=== PATIENT | female | born 1950 | race Two or more races ===

== ENCOUNTER 2016-06-09 10:14 | Day surgery (SDC) | payer MEDICARE, MEDICAID ==
[2016-06-02 10:00] LABS: HEMATOCRIT 45.1 % (36.0-47.0); HGB HCT DIFFERENCE -0.1; MEAN CORPUSCULAR HEMOGLOBIN 30.5 pg (27.0-33.4); MEAN CORPUSCULAR HGB CONC 33.3 g/dL (32.0-36.0); MEAN CORPUSCULAR VOLUME 92 fl (80-97); RED BLOOD COUNT 4.92 10^6/uL (3.72-5.28); RED CELL DISTRIBUTION WIDTH 13.2 % (11.5-14.0); WHITE BLOOD COUNT 9.3 10^3/uL (4.0-10.5)
[~2016-06-09 10:14] MED LIST: CEFAZOLIN 1 GM/D5W RTU 1 GM/50 ML RTUPB IV PRN; LACTATED RINGERS 1000 ML IV PRN
[2016-06-09] MEDS ORDERED: LIDOCAINE 1%/EPINEPHRINE INJ 20 ML VIAL ONE ×2 (10:45→13:41)
[2016-06-09] MEDS ORDERED: MICROFIBRILLAR COLLAGEN 1 GM PACK ONE (10:45)
[2016-06-09] MEDS ORDERED: FAMOTIDINE INJ/PF 20 MG/2 ML SDV IV ONE (12:05)
[2016-06-09] MEDS ORDERED: FENTANYL CITRATE INJ/PF 100 MCG/2 ML AMPUL ONE (12:42)
[2016-06-09] MEDS ORDERED: ACETAMINOPHEN 100 ML IV ONE (12:43)
[2016-06-09] MEDS ORDERED: PROPOFOL INJ 200 MG/20 ML VIAL IV ONE (12:43)
[2016-06-09] MEDS ORDERED: MIDAZOLAM 2 MG/2 ML INJ ONE (12:43)
[2016-06-09] MEDS ORDERED: METOCLOPRAMIDE HCL INJ/PF 10 MG/2 ML SDV ONE (13:10)
[2016-06-09] MEDS ORDERED: DEXAMETHASONE SOD PHOSPHATE INJ 4 MG/1 ML VIAL ONE (13:10)
[2016-06-09] MEDS ORDERED: LIDOCAINE 2% INJ-PF (20 MG/ML) 10 ML AMPUL ONE (13:10)
[2016-06-09] MEDS ORDERED: ONDANSETRON HCL INJ/PF 4 MG/2 ML SDV ONE (13:10)
[2016-06-09] MEDS ORDERED: MORPHINE SULFATE 10 MG/ML INJ IV PRN (13:49)
[2016-06-09] MEDS ORDERED: MEPERIDINE HCL/PF INJ 25 MG/1 ML DISP.SYRIN IV PRN (13:49)
[2016-06-09] MEDS ORDERED: PROMETHAZINE HCL INJ 25 MG/1 ML VIAL IV PRN ×2 (13:49)
[2016-06-09] MEDS ORDERED: DIPHENHYDRAMINE HCL 50 MG/ML VIAL IV PRN (13:49)
[2016-06-09] MEDS ORDERED: FENTANYL CITRATE INJ/PF 100 MCG/2 ML AMPUL IV PRN ×3 (13:49)
[2016-06-09] MEDS ORDERED: OXYCODONE-ACETAMINOPHEN 5-325 MG TABLET PO PRN ×2 (13:49)
--- NOTE | 2016-06-09 14:37 | Operative Report ---
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 Ultrasound directed open right breast excisional biopsy in 3 parts SURGEON: YANICK MARRUFO IMPORT/EXPORT SPECIALIST: IGOR HERNANDEZ ANESTHESIA: LMAC TISSUE REMOVED OR ALTERED: 3 right breast specimens COMPLICATIONS: None ESTIMATED BLOOD LOSS: scant INTRAOPERATIVE FINDINGS: See below PROCEDURE: The patient was seen in the preoperative holding area where the right breast was marked. Local examination confirmed palpable density 12 o'clock position right breast approximate 4 cm from the ipsilateral nipple. The patient taken the operating room where LMAC anesthesia was induced. Right arm abducted, right breast prepped and draped sterile fashion. Surgical plan and surgical time out conducted. Focused ultrasound of the right breast confirmed the hypoechoic density approximately 1 cm vertically oriented in the right breast at the center of the palpable density. The overlying skin was anesthetized with 1% lidocaine plain. A 5 cm curvilinear incision was made between the 11:30 and 1 o'clock position right breast approximate 4 cm from the nipple. Underlying mass of breast tissue was excised using electrocautery. The specimen was approximately 4 x 5 x 3 cm. It was labeled with a long suture in the patient's right lateral position, short suture in the superior anterior position. Suspected with ultrasound and felt that it did not contain the target mass. This specimen was labeled specimen A . We reinspected the breast cavity and there was the palpable lesion in the central to 2 o'clock position. Ultrasound confirmed retention of the mass in the patient's breast. Therefore a second incisional biopsy was performed of this density. The specimen was comparable in size to the first specimen, labeled accordingly long suture in the lateral position short suture anteriorly , with the palpable density on the posterior surface of this specimen. It was labeled specimen B and taken to pathology where it was reviewed with Dr. Jung Whatley. The posterior nodular area underwent frozen section and review by Dr. Beach was felt to represent a papillary lesion. He ordered to ensure negative margins, Dr. Beach requested a cavity excision to the deep to the specimen B. We therefore went back to the patient's breast and removed a 1 x 4 x 4 cm posterior cavity shave of the lumpectomy site. This was labeled specimen C, was oriented with long suture in the patient's lateral right position and the short suture in the superior position. Was sent for permanent analysis We felt the operation was complete. Hemostasis was excellent. Avitene was placed in the recesses of the wound and the wound closed with 3-0 Vicryl. Steri -Strips applied. Postoperative suture well to recovery in stable condition. The physician personal injury legal assistant, Ms. Hernandez, provided assistance during this case by: assisting, retracting tissue, instillation of local anesthesia and closure of skin incisions.
--- NOTE | 2016-06-09 14:49 | PDOC DISCHARGE SUMMARY ---
Discharge Summary (SDC) - Discharge Final Diagnosis: right breast mass Date of Surgery: 06/09/16 Discharge Date: 06/09/16 Condition: Stable Treatment or Instructions: [facility] [address], [place] [address] Care Instructions Following Your Lumpectomy Activities: Resume normal activities when you feel comfortable. It is best to remain as active as possible to speed your recovery. It is common to experience some fatigue after surgery and you may find that short naps are helpful. No driving while taking pain medication. Do not drive if you are taking pain medication other than Tylenol or Ibuprofen. No swimming, tub baths or soaking in a hot tub for 4 weeks. There are no dietary restrictions. Do not smoke as this impairs wound healing. Surgical Site care: Leave skin glue intact. You may shower when desired. Do not scrub the incision. Pat the area dry with a towel. You do not need to recover the wound although some patients find that they feel more comfortable using a light dressing for a few days to absorb any minimal drainage which may occur. Medications: Take Motrin (ibuprofen) 600 mg to 800 mg every 8 hours around the clock. You may taper this medication as you experience less pain. Take narcotic pain control such as Tylenol #3 or Percocet one to tablets every six hours as needed for breakthrough pain. Do not take over the counter Tylenol if you are taking either Tylenol #3 or Percocet. Again, you cannot drive while taking narcotic pain medication. Resume all of your normal prescription medications after your surgery unless instructed otherwise. You may experience constipation after surgery while taking pain medications. If using a narcotic on a regular basis, take a stool softener such as Colace twice a day. It is helpful to stay hydrated by drinking lots of fluids. Walking is also helpful and is good exercise after surgery. If you need extra help, use Milk of Magnesia according to the directions on the package. Follow-up: Call our office at to make a follow-up appointment in 10-14 days. Your doctor will call to discuss the pathology report with you as soon as it is available. Concerns: Some bruising may occur and will go away over time. If you have a fever of 101.5 or greater, chills, redness at the incision site, excessive drainage from your wound or severe pain not relieved by pain medication, call your doctor. A physician is available 24 hours a day 7 days a week in addition to regular office hours. If problems arise after normal office hours please call the hospital at . Please call if you have any questions or concerns. Prescriptions: Acetaminophen with Codeine [Tylenol #3 Tablet] 1 each PO Q6HP PRN #20 tablet PRN Reason: Discharge Diet: As Tolerated Discharge Activity: Activity As Tolerated Report the Following to Your Physician Immediately: Fever over 101 Degrees, Swelling, Warmth, Increased Soreness, Drainage-Foul Smelling
[2016-06-09 17:41] VITALS: BP 115/68
--- NOTE | 2016-06-10 15:38 | EKG REPORT ---
SEVERITY:- NORMAL ECG - SINUS RHYTHM : Confirmed by: Elif Pierson MD 10-Jun-2016 15:37:23
== END 2016-06-09 17:55 | disposition home or self-care (01) ==
LOC: OROUT 10:14
PROVIDERS: ATTEND Surgery
PROC: 0HBT0ZX Excision of Right Breast, Open Approach, Diagnostic (ICD-10-PCS; principal; 2016-06-09 13:30)
DX: D05.11 Intraductal carcinoma in situ of right breast (principal); I10 Essential (primary) hypertension; K21.9 Gastro-esophageal reflux disease without esophagitis; Z96.652 Presence of left artificial knee joint; Z79.899 Other long term (current) drug therapy
CPT/HCPCS: 36415 ×2; 84132; 85027; 88342 ×2; 88341 ×2; 88307 ×2; 93005; 93010; 19120; J2250; J0690; J1100; J3010; J3490 ×3; J2765; J2405; J2704; S0028; J0131; 400; 76098

== ENCOUNTER → 2016-07-05 | Outpatient (CLI) | payer MEDICARE, MEDICAID | LOC: RAD 12:38 | PROVIDERS: ATTEND Surgery | DX: C50.911 Malignant neoplasm of unspecified site of right female breast (principal) | CPT/HCPCS: 82565; A9576; C8906; 77059 ==

== ENCOUNTER → 2016-07-19 | Outpatient (CLI) | payer MEDICARE, MEDICAID ==
--- NOTE | 2016-07-30 09:24 | WOMENS IMAGING REPORT ---
EXAM DESCRIPTION: U/S BREAST UNILAT LIMITED COMPLETED DATE/TIME: 07/19/2016 10:12 am REASON FOR STUDY: N63 LUMP N63 UNSPECIFIED LUMP IN BREAST COMPARISON: MRI bilateral breasts 07/05/2016 Breast ultrasound 08/20/2015 Bilateral mammography 08/13/2015 TECHNIQUE: Real-time and static grayscale imaging performed of the right breast targeted to the area of MRI concern. Selected color Doppler images recorded. LIMITATIONS: None. FINDINGS: MASS: No mass identified. Normal glandular tissue. OTHER: Multiple small breast parenchymal cysts are identified in the right breast central retroareola r region. IMPRESSION: No suspicious findings detected by ultrasound. BIRAD: 4 Suspicious. Biopsy should be considered. The nodule of concern on MRI 07/05/2016, 7 mm enhancing mass lesions central right breast at approximat calvin the level of the nipple 2.8 cm from the nipple is not identified by ultrasound for second-look. No ultrasound-guided biopsy was performed today. Results were discussed with Dr. Hurtado, and MRI g uided biopsy is recommended. RECOMMENDATION: RECOMMENDED FOLLOW-UP: Follow-up as clinically indicated. COMMENT: The [employer] (ACR) has developed recommendations for screening MRI of the breasts in certain patient populations, to be used in conjunction with mammography. Breast MRI s urveillance may be appropriate for women with more than 20% lifetime risk of developing breast cancer as determined by genetic testing, significant family history of the disease, or history of mantle r adiation for Hodgkins Disease. ACR Practice Guidelines 2008. TECHNICAL DOCUMENTATION: JOB ID: [id number] [employer]- All Rights Reserved
== END ==
LOC: WI 09:21
PROVIDERS: ATTEND Surgery
DX: N60.01 Solitary cyst of right breast (principal)
CPT/HCPCS: 76642

== ENCOUNTER → 2016-09-28 | Outpatient (CLI) | payer MEDICARE, MEDICAID ==
[2016-09-28 11:44] LABS: ABSOLUTE EOSINOPHILS # (AUTO) 0.2 10^3/uL (0.0-0.6); ABSOLUTE LYMPHOCYTES (AUTO) 2.7 10^3/uL (0.5-4.7); ABSOLUTE MONOCYTES (AUTO) 0.7 10^3/uL (0.1-1.4); ABSOLUTE NEUT (AUTO) 4.5 10^3/uL (1.7-8.2); BASOPHILS % (AUTO) 0.5 % (0-2); EOSINOPHILS % (AUTO) 2.1 % (0-6); HEMATOCRIT 42.4 % (36.0-47.0); HEMOGLOBIN 14.4 g/dL (12.0-15.5); HGB HCT DIFFERENCE 0.8; LYMPHOCYTES % (AUTO) 33.5 % (13-45); MEAN CORPUSCULAR HEMOGLOBIN 31.3 pg (27.0-33.4); MEAN CORPUSCULAR HGB CONC 33.9 g/dL (32.0-36.0); MEAN CORPUSCULAR VOLUME 92 fl (80-97); MONOCYTES % (AUTO) 8.5 % (3-13); RED BLOOD COUNT 4.59 10^6/uL (3.72-5.28); RED CELL DISTRIBUTION WIDTH 12.4 % (11.5-14.0); SEGMENTED NEUTROPHILS % (AUTO) 55.4 % (42-78); WHITE BLOOD COUNT 8.2 10^3/uL (4.0-10.5)
[2016-09-28 12:08] LABS: ALANINE AMINOTRANSFERASE 28 U/L (9-52); ALBUMIN 4.4 g/dL (3.5-5.0); ALKALINE PHOSPHATASE 87 U/L (38-126); ASPARTATE AMINO TRANSFERASE 26 U/L (14-36); BILIRUBIN,DIRECT 0.3 mg/dL (0.0-0.4); BILIRUBIN,TOTAL 0.9 mg/dL (0.2-1.3); TOTAL PROTEIN 7.7 g/dL (6.3-8.2)
== END ==
LOC: OD 10:21
PROVIDERS: ATTEND Radiology Radiation Oncology
DX: D05.11 Intraductal carcinoma in situ of right breast (principal); Z17.0 Estrogen receptor positive status [ER+]
CPT/HCPCS: 80076; 85025

== ENCOUNTER → 2016-10-22 | Outpatient (CLI) | payer MEDICARE, MEDICAID ==
--- NOTE | 2016-10-26 16:03 | WOMENS IMAGING REPORT ---
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 Additional left breast ultrasound was performed. LIMITATIONS: None. FINDINGS: BREAST: Left MASSES: Well-circumscribed low-density mammographic mass in the left breast retroareolar region later ally, 2 cm in size. This was present on prior MRI 07/05/2016, and appeared to be a benign breast pare nchymal cyst at that time. Ultrasound was performed today, benign simple cyst present in this area. CALCIFICATIONS: No new or suspicious calcifications. ARCHITECTURAL DISTORTION: None. DEVELOPING DENSITY: None. ASYMMETRY: None noted. OTHER: No other significant findings. Read with the assistance of CAD. .[facility] - R2 Cenova Version 1.3 .[facility] Imaging - R2 Cenova Version 1.3 .[facility] Imaging - R2 Cenova Version 2.4 .[facility] - R2 Cenova Version 2.4 .[facility] - R2 Furniture Finisher Version 9.2 Left breast ultrasound: Ultrasound of the left breast demonstrates the 2.3 cm simple cyst in the left retroareolar region lat erally. This correlates with prior MRI and today's left breast diagnostic mammograms/tomosynthesis. IMPRESSION: No mammographic or sonographic evidence for malignancy left breast. BREAST DENSITY: b. There are scattered areas of fibroglandular density. BIRAD: 2 Benign findings. RECOMMENDATION: RECOMMENDED FOLLOW UP: Please continue right breast diagnostic mammograms and left b reast screening in 6 months SPECIFIC INTERVENTION/IMAGING/CONSULTATION RECOMMENDED:No additional intervention/ imaging/consultati on needed at this time. COMMUNICATION:Patient notified by letter. COMMENT: The patient has been notified of the results by letter per MQSA requirements. Additional no tification policies are in place for contacting patient with suspicious or incomplete findings. Quality ID #225: The [employer] recommends an annual screening mammogram for women aged 40 years or over. This facility utilizes a reminder system to ensure that all patients receive reminder letters, and/or direct phone calls for appointments. This includes reminders for routine scr eening mammograms, diagnostic mammograms, or other Breast Imaging Interventions when appropriate. Th is patient will be placed in the appropriate reminder system. The [employer] (ACR) has developed recommendations for screening MRI of the breast s in certain patient populations, to be used in conjunction with mammography. Breast MRI surveillanc e may be appropriate for women with more than 20% lifetime risk of developing breast cancer as deter mined by genetic testing, significant family history of the disease, or history of mantle radiation f or Hodgkins Disease. ACR Practice Guidelines 2008. DBT Technology DBT is a type of tomographic mammography. With conventional mammography, overlapping breast tissue ma y make lesions difficult to detect, even with good compression. DBT uses an x-ray tube that rotates a round the breast, taking images at different angles. These images are then combined to create thin sl ices of the breast that the radiologist can view as a 3D reconstruction. The [employer] unit can perform full-field digital mammograms (2D imaging); or DBT (3D imaging); or both, in a combination mode that quickly performs both the mammogram and the tomosynthesis scan while the breast is still compressed. PQRS 6045F: Fluoroscopic imaging is not utilized for breast tomosynthesis. TECHNICAL DOCUMENTATION: FINDING NUMBER: (1) ASSESSMENT: (1) JOB ID: [id number] [employer]- All Rights Reserved
--- NOTE | 2016-10-26 16:03 | WOMENS IMAGING REPORT ---
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 Additional left breast ultrasound was performed. LIMITATIONS: None. FINDINGS: BREAST: Left MASSES: Well-circumscribed low-density mammographic mass in the left breast retroareolar region later ally, 2 cm in size. This was present on prior MRI 07/05/2016, and appeared to be a benign breast pare nchymal cyst at that time. Ultrasound was performed today, benign simple cyst present in this area. CALCIFICATIONS: No new or suspicious calcifications. ARCHITECTURAL DISTORTION: None. DEVELOPING DENSITY: None. ASYMMETRY: None noted. OTHER: No other significant findings. Read with the assistance of CAD. .[facility] - R2 Cenova Version 1.3 .[facility] Imaging - R2 Cenova Version 1.3 .[facility] Imaging - R2 Cenova Version 2.4 .[facility] - R2 Cenova Version 2.4 .[facility] - R2 Hook Loader Version 9.2 Left breast ultrasound: Ultrasound of the left breast demonstrates the 2.3 cm simple cyst in the left retroareolar region lat erally. This correlates with prior MRI and today's left breast diagnostic mammograms/tomosynthesis. IMPRESSION: No mammographic or sonographic evidence for malignancy left breast. BREAST DENSITY: b. There are scattered areas of fibroglandular density. BIRAD: 2 Benign findings. RECOMMENDATION: RECOMMENDED FOLLOW UP: Please continue right breast diagnostic mammograms and left b reast screening in 6 months SPECIFIC INTERVENTION/IMAGING/CONSULTATION RECOMMENDED:No additional intervention/ imaging/consultati on needed at this time. COMMUNICATION:Patient notified by letter. COMMENT: The patient has been notified of the results by letter per MQSA requirements. Additional no tification policies are in place for contacting patient with suspicious or incomplete findings. Quality ID #[id number]: The [employer] recommends an annual screening mammogram for women aged 40 years or over. This facility utilizes a reminder system to ensure that all patients receive reminder letters, and/or direct phone calls for appointments. This includes reminders for routine scr eening mammograms, diagnostic mammograms, or other Breast Imaging Interventions when appropriate. Th is patient will be placed in the appropriate reminder system. The [employer] (ACR) has developed recommendations for screening MRI of the breast s in certain patient populations, to be used in conjunction with mammography. Breast MRI surveillanc e may be appropriate for women with more than 20% lifetime risk of developing breast cancer as deter mined by genetic testing, significant family history of the disease, or history of mantle radiation f or Hodgkins Disease. ACR Practice Guidelines 2008. DBT Technology DBT is a type of tomographic mammography. With conventional mammography, overlapping breast tissue ma y make lesions difficult to detect, even with good compression. DBT uses an x-ray tube that rotates a round the breast, taking images at different angles. These images are then combined to create thin sl ices of the breast that the radiologist can view as a 3D reconstruction. The [employer] unit can perform full-field digital mammograms (2D imaging); or DBT (3D imaging); or both, in a combination mode that quickly performs both the mammogram and the tomosynthesis scan while the breast is still compressed. PQRS 6045F: Fluoroscopic imaging is not utilized for breast tomosynthesis. TECHNICAL DOCUMENTATION: FINDING NUMBER: (1) ASSESSMENT: (1) JOB ID: [id number] [employer]- All Rights Reserved
== END ==
LOC: WI 09:47
PROVIDERS: ATTEND Radiology Radiation Oncology
DX: D05.11 Intraductal carcinoma in situ of right breast (principal); Z17.0 Estrogen receptor positive status [ER+]; N60.02 Solitary cyst of left breast
CPT/HCPCS: 76642; G0279; G0206

== ENCOUNTER → 2016-11-30 | Outpatient (CLI) | payer MEDICARE, MEDICAID ==
--- NOTE | 2016-11-30 12:37 | WOMENS IMAGING REPORT ---
EXAM DESCRIPTION: 3D DX MAMMO RIGHT UNILAT COMPLETED DATE/TIME: 11/30/2016 11:05 am REASON FOR STUDY: BREAST CANCER D05.11 INTRADUCTAL CARCINOMA IN SITU OF RIGHT BREAST COMPARISON: 08/13/2015 and 07/23/2014. TECHNIQUE: Standard craniocaudal and mediolateral oblique images of the breast recorded using digita l acquisition and breast tomosynthesis. Additional images include true lateral images with tomosynthesis and compression MLO and CC images. LIMITATIONS: None. FINDINGS: BREAST: right MASSES: No suspicious masses. CALCIFICATIONS: Multiple calcifications appear overall unchanged. ARCHITECTURAL DISTORTION: Marked distortion in the superior breast secondary to lumpectomy. DEVELOPING DENSITY: None. ASYMMETRY: None noted. OTHER: No other significant findings. Read with the assistance of CAD. .[facility] - R2 Cenova Version 1.3 .[facility] Imaging - R2 Cenova Version 1.3 .[facility] Imaging - R2 Cenova Version 2.4 .[facility] - R2 Cenova Version 2.4 .[facility] - R2 Dog Groomer Version 9.2 IMPRESSION: Surgical changes secondary to lumpectomy. Multiple calcifications appear unchanged. BREAST DENSITY: b. There are scattered areas of fibroglandular density. BIRAD: 2 Benign findings. RECOMMENDATION: RECOMMENDED FOLLOW UP: Post lumpectomy protocol. COMMENT: The patient has been notified of the results by letter per SA requirements. Additional no tification policies are in place for contacting patient with suspicious or incomplete findings. Quality ID #[id number]: The [employer] recommends an annual screening mammogram for women aged 40 years or over. This facility utilizes a reminder system to ensure that all patients receive reminder letters, and/or direct phone calls for appointments. This includes reminders for routine scr eening mammograms, diagnostic mammograms, or other Breast Imaging Interventions when appropriate. Th is patient will be placed in the appropriate reminder system. The [employer] (ACR) has developed recommendations for screening MRI of the breast s in certain patient populations, to be used in conjunction with mammography. Breast MRI surveillanc e may be appropriate for women with more than 20% lifetime risk of developing breast cancer as deter mined by genetic testing, significant family history of the disease, or history of mantle radiation f or Hodgkins Disease. ACR Practice Guidelines 2008. DBT Technology DBT is a type of tomographic mammography. With conventional mammography, overlapping breast tissue ma y make lesions difficult to detect, even with good compression. DBT uses an x-ray tube that rotates a round the breast, taking images at different angles. These images are then combined to create thin sl ices of the breast that the radiologist can view as a 3D reconstruction. The [employer] unit can perform full-field digital mammograms (2D imaging); or DBT (3D imaging); or both, in a combination mode that quickly performs both the mammogram and the tomosynthesis scan while the breast is still compressed. PQRS 6045F: Fluoroscopic imaging is not utilized for breast tomosynthesis. TECHNICAL DOCUMENTATION: FINDING NUMBER: (1) ASSESSMENT: (1) JOB ID: [id number] [employer]- All Rights Reserved
== END ==
LOC: WI 10:31
PROVIDERS: ATTEND Radiology Radiation Oncology
DX: D05.11 Intraductal carcinoma in situ of right breast (principal); Z17.0 Estrogen receptor positive status [ER+]
CPT/HCPCS: G0279; G0206

== ENCOUNTER → 2016-12-06 | Outpatient (CLI) | payer MEDICARE, MEDICAID ==
--- NOTE | 2016-12-06 09:10 | WOMENS IMAGING REPORT ---
EXAM DESCRIPTION: BONE DENSITY HIP/SPINE COMPLETED DATE/TIME: 12/06/2016 8:05 am REASON FOR STUDY: OSTEOPOROSIS M81.0 AGE-RELATED OSTEOPOROSIS W/O CURRENT PATHOLOGICAL FRAC COMPARISON: None. TECHNIQUE: Dual-Energy X-ray Absorptiometry (DEXA) of the AP Spine and Hip. LIMITATIONS: None. FINDINGS: LUMBAR SPINE: The bone mineral density (BMD) measured from L1-L4 in the AP projection correlates with a T-score of +1.2, which is normal as defined by the World Health Organization. HIP: The bone mineral density (BMD) measured in the left femoral neck at the hip correlates with a T-score of -0.5, which is normal as defined by the World Health Organization. IMPRESSION: 1. LUMBAR SPINE: Normal 2. HIP: Normal COMMENT: The World Health Organization defines low BMD as follows: T-score: Normal: Greater than -1.0 Osteopenia: Between -1.0 and -2.5 Osteoporosis: Less than -2.5 without fractures Established osteoporosis: Less than -2.5 with fractures In general, you may wish to consider: Diagnosis Treatment Follow-up DEXA Normal BMD Prevention 2-3 years Osteopenia Prevention/Therapy 1-2 years Osteoporosis Therapy Yearly TECHNICAL DOCUMENTATION: JOB ID: [id number] [employer]- All Rights Reserved
== END ==
LOC: WI 07:36
PROVIDERS: ATTEND Internal Medicine
DX: M81.0 Age-related osteoporosis without current pathological fracture (principal)
CPT/HCPCS: 77080

== ENCOUNTER → 2016-12-31 | Outpatient (CLI) | payer MEDICARE, MEDICAID ==
--- NOTE | 2016-12-31 11:48 | RADIOLOGY REPORT (SQ) ---
EXAM DESCRIPTION: U/S RETROPERITON (RENAL/AORTA) COMPLETED DATE/TIME: 12/31/2016 11:34 am REASON FOR STUDY: LOWER ABDOMINAL PAIN R10.32 LEFT LOWER QUADRANT PAIN R10.31 RIGHT LOWER QUADRANT PAIN COMPARISON: None. TECHNIQUE: Dynamic and static grayscale images acquired of the kidneys and bladder and recorded on P ACS. Additional selected color Doppler and spectral images recorded. LIMITATIONS: None. FINDINGS: RIGHT KIDNEY: Normal size. Normal echogenicity. No solid or suspicious masses. No hydronep hrosis. No calcifications. LEFT KIDNEY: Normal size. Normal echogenicity. No solid or suspicious masses. No hydronephrosis. No calcifications. BLADDER: No masses. OTHER FINDINGS: No other significant finding. IMPRESSION: NORMAL RENAL AND BLADDER ULTRASOUND. TECHNICAL DOCUMENTATION: JOB ID: [id number] [employer]- All Rights Reserved
== END ==
LOC: RAD 11:55
PROVIDERS: ATTEND Internal Medicine
DX: R10.31 Right lower quadrant pain (principal); R10.32 Left lower quadrant pain
CPT/HCPCS: 76770

== ENCOUNTER → 2017-05-10 | Outpatient (CLI) | payer MEDICARE, MEDICAID ==
--- NOTE | 2017-05-10 11:02 | WOMENS IMAGING REPORT ---
EXAM DESCRIPTION: BILAT DIAGNOSTIC MAMMO W/CAD COMPLETED DATE/TIME: 05/10/2017 9:55 am REASON FOR STUDY: BILATERAL DIAGNOSTIC D05.11 Z12.31 ENCNTR SCREEN MAMMOGRAM FOR MALIGNANT NEOPLASM OF ROSA D05.11 INTRADUCTAL CARCINOMA IN SITU OF RIGHT BREAST COMPARISON: October 2016 TECHNIQUE: Standard craniocaudal and mediolateral oblique views of each breast recorded using digita l acquisition and breast tomosynthesis. True lateral and magnification views right breast. LIMITATIONS: None. FINDINGS: RIGHT BREAST MASSES: No suspicious masses. CALCIFICATIONS: No new or suspicious calcifications. ARCHITECTURAL DISTORTION: Adjacent to surgical clips, lateral subareolar, unchanged. DEVELOPING DENSITY: None. ASYMMETRY: None noted. OTHER: No other significant findings. LEFT BREAST MASSES: No suspicious masses. CALCIFICATIONS: No new or suspicious calcifications. ARCHITECTURAL DISTORTION: None. DEVELOPING DENSITY: None. ASYMMETRY: None noted. OTHER: No other significant finding. Read with the assistance of CAD: .[facility] - R2 Cenova Version 1.3 .[facility] - R2 Cenova Version 1.3 .[facility] - R2 Cenova Version 2.4 .[facility] - R2 Cenova Version 2.4 .[facility] - R2 I[employer]igation Foreman Version 9.2 IMPRESSION: Postsurgical changes right breast. BREAST DENSITY: b. There are scattered areas of fibroglandular density. BIRAD: 2 Benign findings. RECOMMENDATION: RECOMMENDED FOLLOW UP: Annual mammographic follow-up. SPECIFIC INTERVENTION/IMAGING/CONSULTATION RECOMMENDED:No additional intervention/ imaging/consultati on needed at this time. COMMUNICATION:The imaging findings were not discussed with the patient. Her referring provider has be en notified of the findings. COMMENT: The patient has been notified of the results by letter per SA requirements. Additional no tification policies are in place for contacting patient with suspicious or incomplete findings. Quality ID #[id number]: The [employer] recommends an annual screening mammogram for women aged 40 years or over. This facility utilizes a reminder system to ensure that all patients receive reminder letters, and/or direct phone calls for appointments. This includes reminders for routine scr eening mammograms, diagnostic mammograms, or other Breast Imaging Interventions when appropriate. Th is patient will be placed in the appropriate reminder system. The [employer] (ACR) has developed recommendations for screening MRI of the breast s in certain patient populations, to be used in conjunction with mammography. Breast MRI surveillanc e may be appropriate for women with more than 20% lifetime risk of developing breast cancer as deter mined by genetic testing, significant family history of the disease, or history of mantle radiation f or Hodgkins Disease. ACR Practice Guidelines 2008. DBT Technology DBT is a type of tomographic mammography. With conventional mammography, overlapping breast tissue ma y make lesions difficult to detect, even with good compression. DBT uses an x-ray tube that rotates a round the breast, taking images at different angles. These images are then combined to create thin sl ices of the breast that the radiologist can view as a 3D reconstruction. The [employer] unit can perform full-field digital mammograms (2D imaging); or DBT (3D imaging); or both, in a combination mode that quickly performs both the mammogram and the tomosynthesis scan while the breast is still compressed. PQRS 6045F: Fluoroscopic imaging is not utilized for breast tomosynthesis. TECHNICAL DOCUMENTATION: FINDING NUMBER: (1) ASSESSMENT: (1) JOB ID: [id number] [email or web address]- All Rights Reserved Reading location - IP/workstation name: [email or web address]
== END ==
LOC: WI 08:57
PROVIDERS: ATTEND Internal Medicine
DX: D05.11 Intraductal carcinoma in situ of right breast (principal)
CPT/HCPCS: 77066

== ENCOUNTER → 2018-05-16 | Outpatient (CLI) | payer MEDICARE, MEDICAID ==
--- NOTE | 2018-05-16 11:26 | WOMENS IMAGING REPORT ---
EXAM DESCRIPTION: 3D DX MAMMO BILAT COMPLETED DATE/TIME: 05/16/2018 10:32 am REASON FOR STUDY: D05.11 INTRADUCTAL CARCINOMA IN SITU OF RIGHT BREAST COMPARISON: Multiple since 2008 TECHNIQUE: Standard craniocaudal and mediolateral oblique views of each breast recorded using digita l acquisition and breast tomosynthesis. Additional right breast 90 mediolateral view LIMITATIONS: None. FINDINGS: RIGHT BREAST MASSES: No suspicious masses. CALCIFICATIONS: No new or suspicious calcifications. ARCHITECTURAL DISTORTION: Postsurgical change in the central right retroareolar region DEVELOPING DENSITY: None. ASYMMETRY: Right breast skin thickening post radiation therapy OTHER: Old stereotactic biopsy clips in the right breast laterally LEFT BREAST MASSES: No suspicious masses. CALCIFICATIONS: No new or suspicious calcifications. ARCHITECTURAL DISTORTION: None. DEVELOPING DENSITY: None. ASYMMETRY: None noted. OTHER: No other significant finding. Read with the assistance of CAD: .[facility] - R2 Cenova Version 1.3 .[facility] - R2 Cenova Version 2.1 .[facility] - R2 Cenova Version 2.4 .[facility] - R2 Cenova Version 2.4 .[facility] - R2 Voice Professor Version 9.2 IMPRESSION: No mammographic/ tomosynthesis evidence for malignancy bilaterally BREAST DENSITY: b. There are scattered areas of fibroglandular density. BIRAD: 2 Benign findings. RECOMMENDATION: RECOMMENDED FOLLOW UP: Continue yearly bilateral mammography/tomosynthesis SPECIFIC INTERVENTION/IMAGING/CONSULTATION RECOMMENDED:No additional intervention/ imaging/consultati on needed at this time. COMMUNICATION:The negative/benign results were communicated to the patient. COMMENT: The patient has been notified of the results by letter per SA requirements. Additional no tification policies are in place for contacting patient with suspicious or incomplete findings. Quality ID #225: The [employer] recommends an annual screening mammogram for women aged 40 years or over. This facility utilizes a reminder system to ensure that all patients receive reminder letters, and/or direct phone calls for appointments. This includes reminders for routine scr eening mammograms, diagnostic mammograms, or other Breast Imaging Interventions when appropriate. Th is patient will be placed in the appropriate reminder system. The [employer] (ACR) has developed recommendations for screening MRI of the breast s in certain patient populations, to be used in conjunction with mammography. Breast MRI surveillanc e may be appropriate for women with more than 20% lifetime risk of developing breast cancer as deter mined by genetic testing, significant family history of the disease, or history of mantle radiation f or Hodgkins Disease. ACR Practice Guidelines 2008. DBT Technology DBT is a type of tomographic mammography. With conventional mammography, overlapping breast tissue ma y make lesions difficult to detect, even with good compression. DBT uses an x-ray tube that rotates a round the breast, taking images at different angles. These images are then combined to create thin sl ices of the breast that the radiologist can view as a 3D reconstruction. The [employer] unit can perform full-field digital mammograms (2D imaging); or DBT (3D imaging); or both, in a combination mode that quickly performs both the mammogram and the tomosynthesis scan while the breast is still compressed. PQRS 6045F: Fluoroscopic imaging is not utilized for breast tomosynthesis. TECHNICAL DOCUMENTATION: FINDING NUMBER: (1) ASSESSMENT: (1) JOB ID: [id number] [employer] All Rights Reserved Reading location - IP/workstation name: [email or web address]
== END ==
LOC: WI 10:04
PROVIDERS: ATTEND Internal Medicine
DX: D05.11 Intraductal carcinoma in situ of right breast (principal)
CPT/HCPCS: 77066; G0279; 77062

== ENCOUNTER 2019-03-21 12:41 | Emergency (ER) | payer MEDICARE, MEDICAID ==
--- NOTE | 2019-03-21 13:45 | ER Document Report ---
ED Medical Screen (RME) - General Chief Complaint: Shortness Of Breath Stated Complaint: HEADAHCE/FACE SWELLING /LEG PAIN Time Seen by Provider: 03/21/19 13:37 Primary Care Provider: RUDDY LOO MD [Primary Care Provider] - Follow up as needed Information source: Patient Notes: Patient presents complaining of nonproductive cough for the past 9 days. Patient does complain of some shortness of breath and bilateral lower extremity swelling. Patient also reports lateral side pain and flank pain. Patient denies any nausea vomiting or diarrhea. Patient denies any urinary symptoms. Patient does report a history of hypertension, Crohn's disease, breast cancer, chronic back pain. I have greeted and performed a rapid initial assessment of this patient. A comprehensive ED assessment and evaluation of the patient, analysis of test results and completion of the medical decision making process will be conducted by additional ED providers. TRAVEL OUTSIDE OF THE [place] IN LAST 30 DAYS: No - Related Data Allergies/Adverse Reactions: No Known Allergies Allergy (Verified 03/21/19 13:37) Past Medical History - Past Medical History Cardiac Medical History: Reports: Hx Hypertension, Hx Pulmonary Embolism Denies: Hx Coronary Artery Disease, Hx Heart Attack Pulmonary Medical History: Reports: Hx Pneumonia - over 5 yrs ago, ?MRSA in lungs; Pulmonary embolism Denies: Hx Asthma, Hx Bronchitis, Hx COPD, Hx Tuberculosis Neurological Medical History: Denies: Hx Cerebrovascular Accident, Hx Seizures Renal/ Medical History: Reports: Hx Kidney Stones GI Medical History: Reports: Hx Gastroesophageal Reflux Disease Musculoskeltal Medical History: Reports Hx Arthritis - Joints Psychiatric Medical History: Reports: Hx Depression Past Surgical History: Reports: Hx Hysterectomy, Hx Orthopedic Surgery - left knee replacement - Immunizations Immunizations up to date: Yes Hx Diphtheria, Pertussis, Tetanus Vaccination: Yes Physical Exam - Vital signs Vitals: Temp Pulse Resp BP Pulse Ox 99.0 F 54 L 20 100/53 L 95 03/21/19 13:31 03/21/19 13:31 03/21/19 13:03/21/19 13:03/21/19 13:31 - General Notes: 2+ peripheral edema - Respiratory Respiratory status: No respiratory distress - Back Back: CVA tenderness - bilateral Course - Vital Signs Vital signs: Temp Pulse Resp BP Pulse Ox 99.0 F 54 L 20 100/53 L 95 03/21/19 13:31 03/21/19 13:31 03/21/19 13:31 03/21/19 13:31 03/21/19 13:31 Doctor's Discharge - Discharge Referrals: RUDDY LOO MD [Primary Care Provider] - Follow up as needed
[2019-03-21 14:52] LABS: APPEARANCE,URINE CLEAR; BILIRUBIN,URINE NEGATIVE (NEGATIVE); COLOR,URINE YELLOW; GLUCOSE, URINE NEGATIVE (NEGATIVE); KETONES,URINE NEGATIVE (NEGATIVE); LEUKOCYTE ESTERASE,URINE NEGATIVE (NEGATIVE); NITRITE,URINE NEGATIVE (NEGATIVE); PROTEIN,URINE NEGATIVE (NEGATIVE); URINE SPECIFIC GRAVITY 1.011; UROBILINOGEN,URINE NEGATIVE mg/dL (<2.0)
[2019-03-21 15:02] LABS: ABSOLUTE EOSINOPHILS # (AUTO) 0.2 10^3/uL (0.0-0.6); ABSOLUTE LYMPHOCYTES (AUTO) 1.5 10^3/uL (0.5-4.7); ABSOLUTE MONOCYTES (AUTO) 0.6 10^3/uL (0.1-1.4); ABSOLUTE NEUT (AUTO) 2.9 10^3/uL (1.7-8.2); BASOPHILS % (AUTO) 0.6 % (0-2); EOSINOPHILS % (AUTO) 4.3 % (0-6); HEMATOCRIT 31.9 % (36.0-47.0); HEMOGLOBIN 10.8 g/dL (12.0-15.5); LYMPHOCYTES % (AUTO) 28.8 % (13-45); MEAN CORPUSCULAR HEMOGLOBIN 31.2 pg (27.0-33.4); MEAN CORPUSCULAR HGB CONC 33.9 g/dL (32.0-36.0); MEAN CORPUSCULAR VOLUME 92 fl (80-97); MONOCYTES % (AUTO) 10.7 % (3-13); PLATELET COUNT 176 10^3/uL (150-450); RED BLOOD COUNT 3.47 10^6/uL (3.72-5.28); RED CELL DISTRIBUTION WIDTH 12.8 % (11.5-14.0); SEGMENTED NEUTROPHILS % (AUTO) 55.6 % (42-78); TOTAL CELLS COUNTED % (AUTO) 100 %; WHITE BLOOD COUNT 5.2 10^3/uL (4.0-10.5)
[2019-03-21 15:27] LABS: ALBUMIN 3.4 g/dL (3.5-5.0); ALKALINE PHOSPHATASE 51 U/L (38-126); ASPARTATE AMINO TRANSFERASE 124 U/L (14-36); BILIRUBIN,DIRECT 0.1 mg/dL (0.0-0.4); BILIRUBIN,TOTAL 0.5 mg/dL (0.2-1.3); BLOOD UREA NITROGEN 27 mg/dL (7-20); CALCIUM 9.2 mg/dL (8.4-10.2); CHLORIDE 95 mmol/L (98-107); GLUCOSE 101 mg/dL (75-110); POTASSIUM 4.1 mmol/L (3.6-5.0); TOTAL PROTEIN 6.2 g/dL (6.3-8.2)
[2019-03-21 15:37] LABS: NT PRO BNP 2080 pg/mL (<125)
[2019-03-21 15:39] LABS: TROPONIN I < 0.012 ng/mL
[2019-03-21 15:42] LABS: ANION GAP 5 (5-19); CARBON DIOXIDE 36 mmol/L (22-30)
--- NOTE | 2019-03-21 15:48 | RADIOLOGY REPORT (SQ) ---
EXAM DESCRIPTION: ACUTE ABDOMEN SERIES COMPLETED DATE/TIME: 03/21/2019 3:11 pm REASON FOR STUDY: cough, lat side pain COMPARISON: CT of the chest with contrast from 05/31/2015 NUMBER OF VIEWS: Three views. TECHNIQUE: Frontal chest, supine abdomen and upright/decubitus abdomen radiographic images acquired. LIMITATIONS: None. FINDINGS: CHEST: The cardiomediastinal silhouette and pulmonary vasculature are within normal limits . There is no consolidation, pleural effusion or pneumothorax. FREE AIR: No pneumatosis or free intraperitoneal air. BOWEL GAS PATTERN: Nonobstructive pattern. CALCIFICATIONS: The 4.3 x 3.4 cm peripherally calcified structure in the left upper quadrant is uncha nged from 05/31/2015 and is favored to represent the sequela of a prior adrenal hemorrhage. HARDWARE: Cholecystectomy clips in the right upper quadrant. SOFT TISSUES: No abnormality. BONES: No acute findings. OTHER: No other finding. IMPRESSION: 1. No acute cardiopulmonary process. 2. Nonobstructive bowel gas pattern. TECHNICAL DOCUMENTATION: JOB ID: [id number] [employer]- All Rights Reserved Reading location - IP/workstation name: [email or web address]
[2019-03-21] MEDS ORDERED: KETOROLAC TROMETHAMINE 60 MG/2 ML SDV IM ONE (16:52)
--- NOTE | 2019-03-21 20:27 | ER Document Report ---
ED General - General Chief Complaint: Shortness Of Breath Stated Complaint: HEADAHCE/FACE SWELLING /LEG PAIN Time Seen by Provider: 03/21/19 13:37 Primary Care Provider: RUDDY LOO MD [Primary Care Provider] - Follow up as needed TRAVEL OUTSIDE OF THE [place] IN LAST 30 DAYS: No - HPI Patient complains to provider of: leg swelling and hip pain Onset: Last week Onset/Duration: Gradual Severity: Moderate Pain Level: 1 Context: 68 year old female arrrives with complaints of pain in both hips which runs down legs. Also some swelling in lower ext. Perhaps a bit of mild cough. She had the flu about a week or so ago. She feels she has recovered. No discreet chest pain or sob. No fever or chills. Complains mostly of pain in the hips. Exacerbated by: Denies Relieved by: Denies - Related Data Allergies/Adverse Reactions: No Known Allergies Allergy (Verified 03/21/19 13:37) Past Medical History - General Information source: Patient - Social History Smoking Status: Former Smoker Family History: Reviewed & Not Pertinent Patient has suicidal ideation: No Patient has homicidal ideation: No - Past Medical History Cardiac Medical History: Reports: Hx Hypertension, Hx Pulmonary Embolism Denies: Hx Coronary Artery Disease, Hx Heart Attack Pulmonary Medical History: Reports: Hx Pneumonia - over 5 yrs ago, ?MRSA in lungs; Pulmonary embolism Denies: Hx Asthma, Hx Bronchitis, Hx COPD, Hx Tuberculosis Neurological Medical History: Denies: Hx Cerebrovascular Accident, Hx Seizures Renal/ Medical History: Reports: Hx Kidney Stones GI Medical History: Reports: Hx Gastroesophageal Reflux Disease Musculoskeletal Medical History: Reports Hx Arthritis - Joints Psychiatric Medical History: Reports: Hx Depression Past Surgical History: Reports: Hx Hysterectomy, Hx Orthopedic Surgery - left knee replacement - Immunizations Immunizations up to date: Yes Hx Diphtheria, Pertussis, Tetanus Vaccination: Yes Hx Pneumococcal Vaccination: 03/07/16 Review of Systems - Review of Systems Constitutional: No symptoms reported EENT: No symptoms reported Cardiovascular: No symptoms reported Respiratory: No symptoms reported Gastrointestinal: No symptoms reported Genitourinary: No symptoms reported Female Genitourinary: No symptoms reported Musculoskeletal: No symptoms reported Skin: No symptoms reported Hematologic/Lymphatic: No symptoms reported Neurological/Psychological: No symptoms reported Physical Exam - Vital signs Vitals: Temp Pulse Resp BP Pulse Ox 99.0 F 54 L 20 100/53 L 95 03/21/19 13:31 03/21/19 13:31 03/21/19 13:31 03/21/19 13:31 03/21/19 13:31 Interpretation: Normal - General General appearance: Appears well, Alert - HEENT Head: Normocephalic, Atraumatic Eyes: Normal Pupils: PERRL - Respiratory Respiratory status: No respiratory distress Chest status: Nontender Breath sounds: Normal Chest palpation: Normal - Cardiovascular Rhythm: Regular Heart sounds: Normal auscultation Murmur: No - Abdominal Inspection: Normal Distension: No distension Bowel sounds: Normal Tenderness: Nontender Organomegaly: No organomegaly - Back Back: Normal, Nontender - Extremities General upper extremity: Normal inspection, Nontender, Normal color, Normal ROM, Normal temperature General lower extremity: Normal inspection, Nontender, Edema, Normal color, Nor mal ROM, Normal temperature, Normal weight bearing. No: Los's sign - Neurological Neuro grossly intact: Yes Cognition: Normal Orientation: AAOx4 [place] Coma Scale Eye Opening: Spontaneous Sofi Coma Scale Verbal: Oriented Sofi Coma Scale Motor: Obeys Commands [place] Coma Scale Total: 15 Speech: Normal Motor strength normal: LUE, RUE, LLE, RLE Sensory: Normal - Psychological Associated symptoms: Normal affect, Normal mood - Skin Skin Temperature: Warm Skin Moisture: Dry Skin Color: Normal Course - Re-evaluation Re-evalutation: 03/21/19 20:24 MDM 68 year old with some mild peripheral edema. complains of pain in legs mostly hips. This seems as musculoskeltal pain would and she has improved with treatment for that here. She has a local PCP - Dr Baker - and will follow up with him. Chest shows no failure and no chest pain and BP although low initially is normal with orthostatics. She is comfortable with follow up. - Vital Signs Vital signs: Temp Pulse Resp BP Pulse Ox 97.9 F 58 L 20 120/63 89 L 03/21/19 19:33 03/21/19 19:33 03/21/19 13:31 03/21/19 19:33 03/21/19 19:33 - Laboratory Result Diagrams: 03/21/19 14:20 03/21/19 14:20 Laboratory results interpreted by me: 03/21/19 03/21/19 03/21/19 14:20 14:20 14:20 RBC 3.47 L Hgb 10.8 L Hct 31.9 L Sodium 136.2 L Chloride 95 L Carbon Dioxide 36 H BUN 27 H Est GFR ( Amer) 56 L Est GFR (MDRD) Non-Af 46 L AST 124 H NT-Pro-B Natriuret Pep 2080 H Total Protein 6.2 L Albumin 3.4 L Urine Blood 03/21/19 14:20 RBC Hgb Hct Sodium Chloride Carbon Dioxide BUN Est GFR ( Amer) Est GFR (MDRD) Non-Af AST NT-Pro-B Natriuret Pep Total Protein Albumin Urine Blood MODERATE H Discharge - Discharge Clinical Impression: Hip pain, bilateral Edema Qualifiers: Edema type: unspecified Qualified Code(s): R60.9 - Edema, unspecified Condition: Good Disposition: HOME, SELF-CARE Instructions: Toradol Injection ([facility]) Additional Instructions: See your doctor in follow up. Rest. Take your medicine as directed. Please return here for any problems or any concerns. Prescriptions: Furosemide [Lasix 20 mg Tablet] 20 mg PO QAM #10 tablet Potassium Citrate [Potassium Citrate ER] 10 meq PO DAILY #10 tablet.er Referrals: RUDDY LOO MD [Primary Care Provider] - Follow up as needed
[2019-03-21 20:50] VITALS: BP 118/63
--- NOTE | 2019-03-22 01:01 | EKG REPORT ---
SEVERITY:- NORMAL ECG - SINUS RHYTHM : Confirmed by: Elif Peirson MD 22-Mar-2019 01:01:10
== END 2019-03-21 20:40 | disposition home or self-care (01) ==
LOC: ER 12:41
DX: M25.552 Pain in left hip (principal); M25.551 Pain in right hip; R60.9 Edema, unspecified; R06.02 Shortness of breath; I10 Essential (primary) hypertension; Z86.711 Personal history of pulmonary embolism; Z87.442 Personal history of urinary calculi; Z90.710 Acquired absence of both cervix and uterus; Z96.652 Presence of left artificial knee joint
CPT/HCPCS: 93005; 99284; 96372; 36415; 83690; 85025; 80053; 81001; 84484; 83880; 74022; 93010; J1885

== ENCOUNTER → 2019-05-22 | Outpatient (CLI) | payer MEDICARE, MEDICAID ==
--- NOTE | 2019-05-22 12:31 | WOMENS IMAGING REPORT ---
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 EXAM PARAMETERS: Standard craniocaudal and mediolateral oblique views of each breast recorded using digital acquisition. Additional true lateral and compression magnification MLO and CC images of the right breast acquired. Read with the assistance of CAD: .[facility] - [employer] Version 9.2 LIMITATIONS: None. FINDINGS: RIGHT BREAST MASSES: No suspicious masses. CALCIFICATIONS: Stable calcifications. ARCHITECTURAL DISTORTION: Stable surgical changes. ASYMMETRY: None noted. OTHER: Stable diffuse skin thickening. LEFT BREAST MASSES: No suspicious masses. CALCIFICATIONS: Stable benign calcifications. ARCHITECTURAL DISTORTION: None. ASYMMETRY: None noted. OTHER: No other significant finding. IMPRESSION: Stable mammographic appearance of both breasts. Stable surgical changes and treatment c hanges in the right breast. BREAST DENSITY: b. There are scattered areas of fibroglandular density. BIRAD: ASSESSMENT: 2 Benign findings. RECOMMENDATION: RECOMMENDED FOLLOW UP: Continue annual mammography. SPECIFIC INTERVENTION/IMAGING/CONSULTATION RECOMMENDED:No additional intervention/ imaging/consultati on needed at this time. COMMUNICATION:The imaging findings were not discussed with the patient. Her referring provider has be en notified of the findings. COMMENT: The patient has been notified of the results by letter per SA requirements. Additional no tification policies are in place for contacting patient with suspicious or incomplete findings. Quality ID #225: The [employer] recommends an annual screening mammogram for women aged 40 years or over. This facility utilizes a reminder system to ensure that all patients receive reminder letters, and/or direct phone calls for appointments. This includes reminders for routine scr eening mammograms, diagnostic mammograms, or other Breast Imaging Interventions when appropriate. Th is patient will be placed in the appropriate reminder system. TECHNICAL DOCUMENTATION: FINDING NUMBER: (1) ASSESSMENT: (1) JOB ID: [id number] [employer] All Rights Reserved Reading location - IP/workstation name: [email or web address]
== END ==
LOC: WI 09:11
PROVIDERS: ATTEND Internal Medicine
DX: D05.11 Intraductal carcinoma in situ of right breast (principal)
CPT/HCPCS: 77066

== ENCOUNTER 2019-10-02 03:43 | Inpatient (IN) | payer MEDICARE, MEDICAID ==
--- NOTE | 2019-10-02 04:26 | ER Document Report ---
ED General - General Stated Complaint: FEVER,MUSCLE ACHES,BACK PAIN,HEADACHE Time Seen by Provider: 10/02/19 04:10 Primary Care Provider: RUDDY LOO MD [Primary Care Provider] - Follow up as needed Notes: Patient is a 68-year-old female who comes emergency department for chief complaint of 2 days of worsening sick symptoms including feeling feverish, cough, worsening shortness of breath, generalized body aches and pain in her back, headaches, sore throat. She also states her legs feel slightly swollen. She states tonight it became much harder to breathe. She denies smoking, asthma, COPD. She denies any obvious sick contacts. Past medical history does include hypertension, breast cancer (on tamoxifen) pulmonary embolism, kidney stones, chronic back pain, hysterectomy. She is not currently on a blood thinner. TRAVEL OUTSIDE OF THE [place] IN LAST 30 DAYS: No - Related Data Allergies/Adverse Reactions: No Known Allergies Allergy (Verified 03/21/19 13:37) Past Medical History - General Information source: Patient - Social History Smoking Status: Never Smoker Frequency of alcohol use: None Drug Abuse: None Lives with: Family Family History: Reviewed & Not Pertinent - Past Medical History Cardiac Medical History: Reports: Hx Hypertension, Hx Pulmonary Embolism Denies: Hx Coronary Artery Disease, Hx Heart Attack Pulmonary Medical History: Reports: Hx Pneumonia - over 5 yrs ago, ?MRSA in lungs; Pulmonary embolism Denies: Hx Asthma, Hx Bronchitis, Hx COPD, Hx Tuberculosis Neurological Medical History: Denies: Hx Cerebrovascular Accident, Hx Seizures Renal/ Medical History: Reports: Hx Kidney Stones GI Medical History: Reports: Hx Gastroesophageal Reflux Disease Musculoskeletal Medical History: Reports Hx Arthritis - Joints Psychiatric Medical History: Reports: Hx Depression Past Surgical History: Reports: Hx Hysterectomy, Hx Orthopedic Surgery - left knee replacement - Immunizations Immunizations up to date: Yes Hx Diphtheria, Pertussis, Tetanus Vaccination: Yes Hx Pneumococcal Vaccination: 03/07/16 Review of Systems - Review of Systems Constitutional: See HPI EENT: See HPI Cardiovascular: No symptoms reported Respiratory: See HPI Gastrointestinal: No symptoms reported Genitourinary: No symptoms reported Female Genitourinary: No symptoms reported Musculoskeletal: See HPI Skin: No symptoms reported Hematologic/Lymphatic: No symptoms reported Neurological/Psychological: No symptoms reported Physical Exam - Vital signs Vitals: Temp Pulse Resp BP Pulse Ox 99.6 F 98 24 H 138/68 H 89 L 07/28/20 04:00 10/02/19 04:00 10/02/19 04:00 10/02/19 04:00 10/02/19 04:00 - Notes Notes: GENERAL: Patient is alert and interactive, appears to be a slightly uncomfortable HEAD: Normocephalic, atraumatic. EYES: Pupils equal, round, and reactive to light. Extraocular movements intact. ENT: Oral mucosa moist, tongue midline. Oropharynx unremarkable. Airway patent. Nares patent, sinuses non-tender NECK: Full range of motion. Supple. Trachea midline. No lymphadenopathy. No nuchal rigidity. LUNGS: Patient appears to be short of breath, she has mild tachypnea but no labored breathing, clear lungs on auscultation, no noted wheezes, rales, rhonchi, no cough. HEART: Regular rate and rhythm. No murmur ABDOMEN: Soft, non-tender. Non-distended. EXTREMITIES: Moves all 4 extremities spontaneously. No overt edema, normal radial and dorsalis pedis pulses bilaterally. No cyanosis. BACK: no cervical, thoracic, lumbar midline tenderness. No saddle anesthesia, normal distal neurovascular exam. Moves all extremities in full range of motion. NEUROLOGICAL: Alert and oriented x3. Normal speech. Cranial nerves II through XII grossly intact. Strength 5/5 in all extremities. PSYCH: Normal affect, normal mood. SKIN: Warm, dry, normal turgor. No rashes or lesions noted. Course - Re-evaluation Re-evalutation: On my initial examination patient is clearly short of breath with some tachypnea but she is not in distress. She is hypoxic at 85% on room air. Lungs sound clear. Patient placed on 4 L nasal cannula by me, she rapidly improved to normal oxygen saturation. She is very comfortable on this and will be reevaluated. CBC shows leukocytosis with elevation of neutrophils but no bandemia. Chemistry with elevated creatinine at 1.6, given IV fluids. Troponin is negative. BNP is nonspecific. Chest x-ray with possible pneumonitis on the right side, also nonspecific. I am concerned because of patient's hypoxia, history of pulmonary embolism before she had cancer, and she is on no anticoagulation. CTA was perf ormed as result. Radiology results were very delayed, finally CTA was resulted and shows pneumonia and probably postradiation changes after breast cancer. Patient has been started on antibiotics, blood cultures pending, patient will require admission for community-acquired pneumonia, oxygen dependence. I discussed with patient, she states appreciation and agreement. COVID test pending. Discussed with Dr. Colon hospitalist, patient accepted to IMCU full admission. - Vital Signs Vital signs: Temp Pulse Resp BP Pulse Ox 99.6 F 98 24 H 106/62 100 10/02/19 04:00 10/02/19 04:00 10/02/19 04:00 10/02/19 07:00 10/02/19 07:01 - Laboratory Result Diagrams: 10/02/19 04:43 10/02/19 04:43 Laboratory results interpreted by me: 10/02/19 10/02/19 10/02/19 04:43 04:43 04:43 WBC 17.0 H RBC 3.52 L Hgb 11.1 L Hct 32.5 L Lymph % (Auto) 6.6 L Absolute Neuts (auto) 15.1 H Seg Neutrophils % 89.4 H VBG HCO3 Sodium 135.0 L Chloride 96 L Carbon Dioxide 32 H BUN 32 H Creatinine 1.60 H Est GFR ( Amer) 39 L Est GFR (MDRD) Non-Af 32 L Glucose 116 H AST 83 H NT-Pro-B Natriuret Pep 2380 H Total Protein 6.2 L 10/02/19 04:43 WBC RBC Hgb Hct Lymph % (Auto) Absolute Neuts (auto) Seg Neutrophils % VBG HCO3 32.8 H Sodium Chloride Carbon Dioxide BUN Creatinine Est GFR ( Amer) Est GFR (MDRD) Non-Af Glucose AST NT-Pro-B Natriuret Pep Total Protein Discharge - Discharge Clinical Impression: Shortness of breath, Hypoxia Pneumonia Qualifiers: Pneumonia type: due to unspecified organism Laterality: right Lung location: unspecified part of lung Qualified Code(s): J18.9 - Pneumonia, unspecified organism Condition: Stable Disposition: ADMITTED INPATIENT Admitting Provider: Samreen (Hospitalist) Unit Admitted: [facility] Referrals: RUDDY LOO MD [Primary Care Provider] - Follow up as needed
[2019-10-02 05:01] LABS: ABSOLUTE LYMPHOCYTES (AUTO) 1.1 10^3/uL (0.5-4.7); ABSOLUTE MONOCYTES (AUTO) 0.7 10^3/uL (0.1-1.4); ABSOLUTE NEUT (AUTO) 15.1 10^3/uL (1.7-8.2); BASOPHILS % (AUTO) 0.1 % (0-2); HEMATOCRIT 32.5 % (36.0-47.0); HEMOGLOBIN 11.1 g/dL (12.0-15.5); LYMPHOCYTES % (AUTO) 6.6 % (13-45); MEAN CORPUSCULAR HEMOGLOBIN 31.4 pg (27.0-33.4); MEAN CORPUSCULAR HGB CONC 34.1 g/dL (32.0-36.0); MEAN CORPUSCULAR VOLUME 92 fl (80-97); MONOCYTES % (AUTO) 3.9 % (3-13); PLATELET COUNT 204 10^3/uL (150-450); RED BLOOD COUNT 3.52 10^6/uL (3.72-5.28); RED CELL DISTRIBUTION WIDTH 12.4 % (11.5-14.0); SEGMENTED NEUTROPHILS % (AUTO) 89.4 % (42-78); TOTAL CELLS COUNTED % (AUTO) 100 %
[2019-10-02 05:26] LABS: ALBUMIN 3.5 g/dL (3.5-5.0); ALKALINE PHOSPHATASE 53 U/L (38-126); ANION GAP 7 (5-19); ASPARTATE AMINO TRANSFERASE 83 U/L (14-36); BILIRUBIN,TOTAL 0.7 mg/dL (0.2-1.3); BLOOD UREA NITROGEN 32 mg/dL (7-20); CALCIUM 9.3 mg/dL (8.4-10.2); CARBON DIOXIDE 32 mmol/L (22-30); CHLORIDE 96 mmol/L (98-107); GLUCOSE 116 mg/dL (75-110); TOTAL PROTEIN 6.2 g/dL (6.3-8.2); VENOUS BLOOD BASE EXCESS 5.8 mmol/L; VENOUS BLOOD HCO3 32.8 mmol/L (20-32); VENOUS BLOOD PH 7.36 (7.30-7.42)
[2019-10-02 05:32] LABS: NT PRO BNP 2380 pg/mL (<125)
[2019-10-02] MEDS ORDERED: NORMAL SALINE 1000 ML 1,000 ML IV ONE (05:33)
[2019-10-02 05:34] LABS: TROPONIN I < 0.012 ng/mL
[2019-10-02 07:25] LABS: INTERNATIONAL RATION (INR) 0.97; PROTHROMBIN TIME 12.9 SEC (11.4-15.4)
[2019-10-02 07:26] LABS: PARTIAL THROMBOPLASTIN TIME 27.5 SEC (23.5-35.8)
--- NOTE | 2019-10-02 07:32 | RADIOLOGY REPORT (SQ) ---
EXAM DESCRIPTION: XR CHEST 1 VIEW COMPLETED DATE/TME: 10/02/2019 04:23 CLINICAL HISTORY: 68 years Female, hypoxia, short of breath COMPARISON: 05/31/15 NUMBER OF VIEWS/TECHNIQUE: 1/AP FINDINGS: Small patchy opacity of the right upper and right lower lung field. Adequate lung volume, normal cardiac silhouette, and intact bony thorax. IMPRESSION: Small patchy opacity of the right upper and right lower lung field. Differential diagnosis includes atypical pneumonitis. CTA pending.
[2019-10-02] MEDS ORDERED: CEFTRIAXONE 1 GM/D5W RTU 1 GM/50 ML RTUPB IV ONE (07:58)
[2019-10-02] MEDS ORDERED: AZITHROMYCIN INJ 500 MG VIAL IV ONE (07:58)
--- NOTE | 2019-10-02 07:58 | RADIOLOGY REPORT (SQ) ---
EXAM DESCRIPTION: CT CHEST ANGIOGRAPHY WITHOUT THEN WITH IV CONTRAST CLINICAL HISTORY: 68 years, Female, hypoxia, hx PE, leg swelling. CREAT 1.60 COMPARISON: Chest x-ray from today. TECHNIQUE: Axial images with IV contrast. MIP reconstruction. This exam was performed according to our departmental dose-optimization program, which includes automated exposure control, adjustment of the mA and/or kV according to patient size and/or use of iterative reconstruction technique.. Images stored on PACS. FINDINGS: Large 36 mm main pulmonary artery. No evidence for pulmonary embolus. Aorta is unremarkable. No evidence for mediastinal adenopathy or pericardial effusion. Mild dilatation of the left atrium and pulmonary veins. Evaluation of the lungs demonstrates multiple patchy groundglass opacities exclusively in the right lung. More prominent and slightly more consolidative in the right lower lobe. Right upper lobe also involved. No suspicious pleural disease. No suspicious bone lesion. Limited images of the upper abdomen suggest narrowing at the origin of the celiac artery. Question mild fatty liver. Partially visualized lesion adherent to the posterior left adrenal gland. Includes central low density and thicker peripheral calcification. IMPRESSION: 1. Suspected pulmonary hypertension. No evidence for pulmonary embolus. Enlarged left atrium of the heart and pulmonary veins. 2. Moderate diffuse infiltrate in the right lung mainly right lower lobe but also right upper lobe involvement. Combination of groundglass opacities and consolidations. No pleural disease. Findings suspicious for pneumonia and could be compatible with viral etiology. Post radiation changes? 3. Suspected mild fatty liver. Narrowing at the origin of the celiac artery. Chronic partially calcified lesion adherent to the left adrenal gland. 4. Asymmetry of the breasts with more fibroglandular tissue on the right. Skin thickening. Suspected inflammatory or neoplastic right breast abnormality. Post radiation changes? Suggest clinical correlation and further evaluation if necessary.
--- NOTE | 2019-10-02 09:18 | PDOC H&P ---
History of Present Illness Admission Date/PCP: RUDDY LOO Patient complains of: Fever associated shortness of breath for last 2 days. History of Present Illness: DIPAK JANE is a 68 year old female with history of hypertension, hysterectomy, breast cancer status post radiation and tamoxifen, history of pulmonary embolism, came to the emergency room with complaints of fever and shortness of breath of 2 days duration. She is coughing up sputum unable to give a description. Denies any nausea vomiting diarrhea or abdominal pain. Denies any exposure to the COVID. No family members at home are sick. Patient has history of pneumonia before several years ago. He agreed to stay in the hospital for further management, covid test is pending. Past Medical History Cardiac Medical History: Reports: Hypertension, Pulmonary Embolism Denies: Coronary Artery Disease, Myocardial Infarction Pulmonary Medical History: Reports: Pneumonia - over 5 yrs ago, ?MRSA in lungs; Pulmonary embolism Denies: Asthma, Bronchitis, Chronic Obstructive Pulmonary Disease (COPD), Tuberculosis Neurological Medical History: Denies: Seizures GI Medical History: Reports: Gastroesophageal Reflux Disease Musculoskeltal Medical History: Reports: Arthritis - Joints Psychiatric Medical History: Reports: Depression Hematology: Denies: Anemia Past Surgical History Past Surgical History: Reports: Hysterectomy, Orthopedic Surgery - left knee replacement Social History Lives with: Family Smoking Status: Never Smoker Frequency of Alcohol Use: None Hx Recreational Drug Use: No Drugs: None Hx Prescription Drug Abuse: No - Advance Directive Resuscitation Status: Full Code Family History Family History: Reviewed & Not Pertinent Parental Family History Reviewed: Yes - Hypertension Children Family History Reviewed: Yes Sibling(s) Family History Reviewed.: Yes Medication/Allergy Home Medications: Amlodipine Besylate [Norvasc 5 mg Tablet] 5 mg PO DAILY 04/04/11 Lisinopril/Hydrochlorothiazide [Zestoretic 20-25 mg Tablet] 1 tab PO DAILY 04/04/11 Esomeprazole Magnesium [Nexium] 1 cap PO DAILY 05/31/15 Gabapentin 1 tab PO TID 05/31/15 Zolpidem Tartrate [Ambien 5 mg Tablet] 5 mg PO QHS 05/31/15 Albuterol Sulfate [Proair HFA] 2 puff IH Q6H PRN #1 inhaler 06/04/15 Aspirin [Aspirin EC] 81 mg PO DAILY 06/02/16 Methocarbamol [Robaxin] 500 mg PO BID 06/02/16 Oxycodone HCl/Acetaminophen [Percocet 5-325 mg Tablet] 1 - 2 tab PO ASDIR PRN 06/02/16 Acetaminophen with Codeine [Tylenol #3 Tablet] 1 each PO Q6HP PRN #20 tablet 06/09/16 Furosemide [Lasix 20 mg Tablet] 20 mg PO QAM #10 tablet 03/21/19 Potassium Citrate [Potassium Citrate ER] 10 meq PO DAILY #10 tablet.er 03/21/19 Allergies/Adverse Reactions: No Known Allergies Allergy (Verified 03/21/19 13:37) Review of Systems Constitutional: PRESENT: fever(s), headache(s) Eyes: ABSENT: visual disturbances Ears: ABSENT: hearing changes Nose, Mouth, and Throat: ABSENT: sore throat Cardiovascular: ABSENT: orthropnea, palpitations Respiratory: PRESENT: cough, dyspnea, sputum. ABSENT: hemoptysis Gastrointestinal: ABSENT: diarrhea, nausea, vomiting Genitourinary: ABSENT: dysuria, hematuria Musculoskeletal: ABSENT: joint swelling Integumentary: ABSENT: rash, wounds Neurological: ABSENT: abnormal gait, abnormal speech, confusion, dizziness, focal weakness, syncope Psychiatric: ABSENT: anxiety, depression, homidical ideation, suicidal ideation Physical Exam Vital Signs: Temp Pulse Resp BP Pulse Ox 98.4 F 98 24 H 106/62 100 10/02/19 08:00 10/02/19 04:00 10/02/19 04:00 10/02/19 07:00 10/02/19 07:01 Intake & Output 10/01/19 10/02/19 10/03/19 06:59 06:59 06:59 Intake Total 1000 Balance 1000 Weight 73.936 kg General appearance: PRESENT: no acute distress, well-developed Head exam: PRESENT: atraumatic Eye exam: PRESENT: PERRLA Ear exam: PRESENT: normal external ear exam Mouth exam: PRESENT: neck supple Teeth exam: PRESENT: poor dentation Neck exam: ABSENT: carotid bruit, JVD, lymphadenopathy, thyromegaly Respiratory exam: PRESENT: decreased breath sounds Cardiovascular exam: PRESENT: RRR. ABSENT: diastolic murmur, rubs, systolic murmur Pulses: PRESENT: normal dorsalis pedis pul GI/Abdominal exam: PRESENT: normal bowel sounds, soft. ABSENT: distended, guarding, mass, organolmegaly, rebound, tenderness Rectal exam: PRESENT: deferred Extremities exam: PRESENT: full ROM. ABSENT: calf tenderness, clubbing, pedal edema Neurological exam: PRESENT: alert, awake, oriented to person, oriented to place, oriented to time, oriented to situation, CN II-XII grossly intact. ABSENT: motor sensory deficit Psychiatric exam: PRESENT: appropriate affect, normal mood. ABSENT: homicidal ideation, suicidal ideation Results Laboratory Results: 10/02/19 04:43 10/02/19 04:43 10/02/19 10/02/19 10/02/19 04:43 04:43 04:43 WBC 17.0 H RBC 3.52 L Hgb 11.1 L Hct 32.5 L MCV 92 MCH 31.4 MCHC 34.1 RDW 12.4 Plt Count 204 Seg Neutrophils % 89.4 H VBG pH 7.36 VBG pCO2 59.0 VBG HCO3 32.8 H VBG Base Excess 5.8 Sodium 135.0 L Potassium 4.0 Chloride 96 L Carbon Dioxide 32 H Anion Gap 7 BUN 32 H Creatinine 1.60 H Est GFR ( Amer) 39 L Glucose 116 H Calcium 9.3 Total Bilirubin 0.7 AST 83 H Alkaline Phosphatase 53 Total Protein 6.2 L Albumin 3.5 10/02/19 04:43 Troponin I < 0.012 NT-Pro-B Natriuret Pep 2380 H Impressions: Chest X-Ray 10/02/19 04:23 IMPRESSION: Small patchy opacity of the right upper and right lower lung field. Differential diagnosis includes atypical pneumonitis. CTA pending. Chest/Abdomen CTA 10/02/19 05:46 IMPRESSION: 1. Suspected pulmonary hypertension. No evidence for pulmonary embolus. Enlarged left atrium of the heart and pulmonary veins. 2. Moderate diffuse infiltrate in the right lung mainly right lower lobe but also right upper lobe involvement. Combination of groundglass opacities and consolidations. No pleural disease. Findings suspicious for pneumonia and could be compatible with viral etiology. Post radiation changes? 3. Suspected mild fatty liver. Narrowing at the origin of the celiac artery. Chronic partially calcified lesion adherent to the left adrenal gland. 4. Asymmetry of the breasts with more fibroglandular tissue on the right. Skin thickening. Suspected inflammatory or neoplastic right breast abnormality. Post radiation changes? Suggest clinical correlation and further evaluation if necessary. Assessment and Plan - Diagnosis (1) Pneumonia Qualifiers: Pneumonia type: due to unspecified organism Laterality: right Lung location: unspecified part of lung Qualified Code(s): J18.9 - Pneumonia, unspecified organism Is this a current diagnosis for this admission?: Yes Plan: 10/02/2019-patient is admitted for pneumonia most likely community-acquired pneumonia readmitted as inpatient to rule out COVID. To start her on IV Rocephin, Zithromax and IV dexamethasone. GI prophylaxis DVT prophylaxis initiated to provide oxygen supplementations 2 L via nasal cannula. (2) Hypoxia Is this a current diagnosis for this admission?: Yes Plan: 10/02/2019-patient came in with acute hypoxia requiring oxygen supplementations in the ER. Pulse ox is 97% on 4 L at this time. Most likely cause is underlying pneumonia. Plan is to continue the antibiotic therapy blood cultures are pending. (3) HTN (hypertension) Is this a current diagnosis for this admission?: Yes Plan: 10/01/2019-patient has history of chronic essential hypertension taking Lasix, amlodipine at home. Those medications are on hold at this time. Plan is to put the patient on IV hydralazine 10 mg every 6 hours as needed for systolic blood pressure more than 170. - Time Anticipated Discharge Disposition: Home, Self Care Anticipated Discharge: within 72 hours
[2019-10-02] MEDS: DEXAMETHASONE SOD PHOSPHATE INJ 4 MG/1 ML VIAL IV SCH (09:35)
[2019-10-02] MEDS: FAMOTIDINE 20 MG TABLET PO SCH (09:40)
[2019-10-02] MEDS: NORMAL SALINE 1000 ML 1,000 ML IV PRN (09:43)
[2019-10-02] MEDS ORDERED: FAMOTIDINE 20 MG TABLET PO SCH (10:00)
[2019-10-02] MEDS ORDERED: AZITHROMYCIN INJ 500 MG VIAL IV SCH (10:00)
[2019-10-02] MEDS ORDERED: CEFTRIAXONE INJ 1000 MG VIAL IV SCH (10:00)
--- NOTE | 2019-10-02 10:09 | EKG REPORT ---
SEVERITY:- NORMAL ECG - SINUS RHYTHM : Confirmed by: Elif Pierson MD 02-Oct-2019 10:08:34
[2019-10-02] MEDS ORDERED: ONDANSETRON HCL INJ/PF 4 MG/2 ML SDV IV PRN (12:03)
[2019-10-02] MEDS: ACETAMINOPHEN 325 MG TABLET PO PRN (12:24)
[2019-10-02 13:03] LABS: APPEARANCE,URINE CLEAR; BILIRUBIN,URINE NEGATIVE (NEGATIVE); COLOR,URINE STRAW; GLUCOSE, URINE 50 mg/dL (NEGATIVE); KETONES,URINE NEGATIVE (NEGATIVE); LEUKOCYTE ESTERASE,URINE NEGATIVE (NEGATIVE); NITRITE,URINE NEGATIVE (NEGATIVE); PROTEIN,URINE NEGATIVE (NEGATIVE); URINE SPECIFIC GRAVITY 1.016; UROBILINOGEN,URINE NEGATIVE mg/dL (<2.0)
[2019-10-02] MEDS: HEPARIN SOD (PORCINE) 5,000 UNIT/ML 1 ML VIAL SUBCUT SCH ×2 (14:05→21:49)
[2019-10-02] MEDS: TIZANIDINE HCL 4 MG TABLET PO SCH (18:09)
[2019-10-02] MEDS: METHADONE HCL 10 MG TABLET PO SCH (21:48)
[2019-10-02] MEDS: GABAPENTIN 400 MG CAPSULE PO SCH (21:48)
[2019-10-02] MEDS ORDERED: (PENDING PHARMACY ID) (Gabapentin [Gabapentin] 800 MG) PO SCH (22:00)
[2019-10-02] MEDS ORDERED: TAMOXIFEN CITRATE 10 MG TABLET PO ONE (23:59)
[2019-10-03] MEDS: ACETAMINOPHEN 325 MG TABLET PO PRN ×2 (04:53→09:37)
[2019-10-03] MEDS: HEPARIN SOD (PORCINE) 5,000 UNIT/ML 1 ML VIAL SUBCUT SCH ×3 (04:59→21:57)
[2019-10-03] MEDS: GABAPENTIN 400 MG CAPSULE PO SCH ×3 (04:59→21:56)
[2019-10-03 05:40] LABS: ABSOLUTE LYMPHOCYTES (AUTO) 1.2 10^3/uL (0.5-4.7); ABSOLUTE MONOCYTES (AUTO) 0.6 10^3/uL (0.1-1.4); ABSOLUTE NEUT (AUTO) 12.5 10^3/uL (1.7-8.2); BASOPHILS % (AUTO) 0.1 % (0-2); HEMOGLOBIN 10.7 g/dL (12.0-15.5); LYMPHOCYTES % (AUTO) 8.2 % (13-45); MEAN CORPUSCULAR HEMOGLOBIN 31.2 pg (27.0-33.4); MEAN CORPUSCULAR HGB CONC 33.6 g/dL (32.0-36.0); MEAN CORPUSCULAR VOLUME 93 fl (80-97); PLATELET COUNT 185 10^3/uL (150-450); RED BLOOD COUNT 3.44 10^6/uL (3.72-5.28); RED CELL DISTRIBUTION WIDTH 12.6 % (11.5-14.0); SEGMENTED NEUTROPHILS % (AUTO) 87.7 % (42-78); TOTAL CELLS COUNTED % (AUTO) 100 %; WHITE BLOOD COUNT 14.2 10^3/uL (4.0-10.5)
[2019-10-03 06:01] LABS: ALBUMIN 3.4 g/dL (3.5-5.0); ALKALINE PHOSPHATASE 47 U/L (38-126); ASPARTATE AMINO TRANSFERASE 70 U/L (14-36); BILIRUBIN,TOTAL 0.4 mg/dL (0.2-1.3); BLOOD UREA NITROGEN 22 mg/dL (7-20); CALCIUM 9.2 mg/dL (8.4-10.2); GLUCOSE 130 mg/dL (75-110); POTASSIUM 4.1 mmol/L (3.6-5.0); TOTAL PROTEIN 6.1 g/dL (6.3-8.2)
[2019-10-03 06:06] LABS: CARBON DIOXIDE 32 mmol/L (22-30); CHLORIDE 101 mmol/L (98-107)
[2019-10-03 06:13] LABS: ANION GAP 4 (5-19)
--- NOTE | 2019-10-03 08:39 | EKG REPORT ---
SEVERITY:- NORMAL ECG - SINUS RHYTHM : Confirmed by: Elif Pierson MD 03-Oct-2019 08:37:29
[2019-10-03] MEDS: CEFTRIAXONE RTU 2 GM/D5W 50 ML IV SCH (09:28)
[2019-10-03] MEDS: AZITHROMYCIN 500 MG in DEXTROSE 5%-WATER 250 ML IV SCH (09:29)
[2019-10-03] MEDS: METHADONE HCL 10 MG TABLET PO SCH ×2 (09:29→21:56)
[2019-10-03] MEDS: LORATADINE 10 MG TABLET PO SCH (09:30)
[2019-10-03] MEDS: FAMOTIDINE 20 MG TABLET PO SCH (09:30)
[2019-10-03] MEDS: HYDROCHLOROTHIAZIDE 25 MG TABLET PO SCH (09:30)
[2019-10-03] MEDS: ATORVASTATIN CALCIUM 10 MG TABLET PO SCH (09:30)
[2019-10-03] MEDS: TIZANIDINE HCL 4 MG TABLET PO SCH ×2 (09:30→17:50)
[2019-10-03] MEDS: LISINOPRIL 10 MG TABLET PO SCH (09:30)
[2019-10-03] MEDS: PANTOPRAZOLE SODIUM 40 MG TABLET.DR PO SCH (09:30)
[2019-10-03] MEDS: DEXAMETHASONE SOD PHOSPHATE INJ 4 MG/1 ML VIAL IV SCH (09:31)
[2019-10-03] MEDS: NORMAL SALINE 1000 ML 1,000 ML IV PRN (09:34)
[2019-10-03] MEDS ORDERED: (PENDING PHARMACY ID) (Lisinopril/Hydrochlorothiazide [Lisinopril-Hctz 20-25 Mg Tab] 1 TAB PO SCH (10:00)
--- NOTE | 2019-10-03 17:29 | PDOC PROGRESS REPORT ---
Subjective Progress Note for:: 10/03/19 Subjective:: The patient is still feeling short of breath and is wheezy. Reason For Visit: PNEUMONIA Physical Exam Vital Signs: Temp Pulse Resp BP Pulse Ox 97.8 F 65 20 112/61 93 10/03/19 15:36 10/03/19 15:36 10/03/19 15:36 10/03/19 15:36 10/03/19 15:36 Intake & Output 10/02/19 10/03/19 10/04/19 06:59 06:59 06:59 Intake Total 2526 120 Balance 2526 120 Weight 73.936 kg 82.2 kg General appearance: PRESENT: cooperative, mild distress, well-developed Head exam: PRESENT: atraumatic, normocephalic Eye exam: PRESENT: conjunctiva pink. ABSENT: scleral icterus Ear exam: PRESENT: normal external ear exam. ABSENT: bleeding, drainage Mouth exam: PRESENT: moist, tongue midline Respiratory exam: PRESENT: prolonged expiratory phas, symmetrical, unlabored, wheezes. ABSENT: rales, rhonchi, tachypnea Cardiovascular exam: PRESENT: RRR, +S1, +S2, systolic murmur. ABSENT: irregular rhythm GI/Abdominal exam: PRESENT: normal bowel sounds, soft. ABSENT: distended, guarding, tenderness Rectal exam: PRESENT: deferred Gentrourinary exam: ABSENT: indwelling catheter Extremities exam: ABSENT: pedal edema Musculoskeletal exam: PRESENT: ambulatory, normal inspection Neurological exam: PRESENT: alert, awake, oriented to person, oriented to place, oriented to time, oriented to situation, CN II-XII grossly intact Psychiatric exam: PRESENT: flat affect. ABSENT: agitated, anxious Focused psych exam: ABSENT: delusional, paranoid, restlessness Skin exam: PRESENT: dry, normal color, warm. ABSENT: rash Results Laboratory Results: 10/03/19 05:07 10/03/19 05:07 10/03/19 10/03/19 05:07 05:07 WBC 14.2 H RBC 3.44 L Hgb 10.7 L Hct 32.0 L MCV 93 MCH 31.2 MCHC 33.6 RDW 12.6 Plt Count 185 Seg Neutrophils % 87.7 H Sodium 136.8 L Potassium 4.1 Chloride 101 Carbon Dioxide 32 H Anion Gap 4 L BUN 22 H Creatinine 1.02 Est GFR ( Amer) > 60 Glucose 130 H Calcium 9.2 Total Bilirubin 0.4 AST 70 H Alkaline Phosphatase 47 Total Protein 6.1 L Albumin 3.4 L 10/02/19 10/03/19 04:43 05:07 Troponin I < 0.012 < 0.012 NT-Pro-B Natriuret Pep 2380 H Impressions: Chest X-Ray 10/02/19 04:23 IMPRESSION: Small patchy opacity of the right upper and right lower lung field. Differential diagnosis includes atypical pneumonitis. CTA pending. Chest/Abdomen CTA 10/02/19 05:46 IMPRESSION: 1. Suspected pulmonary hypertension. No evidence for pulmonary embolus. Enlarged left atrium of the heart and pulmonary veins. 2. Moderate diffuse infiltrate in the right lung mainly right lower lobe but also right upper lobe involvement. Combination of groundglass opacities and consolidations. No pleural disease. Findings suspicious for pneumonia and could be compatible with viral etiology. Post radiation changes? 3. Suspected mild fatty liver. Narrowing at the origin of the celiac artery. Chronic partially calcified lesion adherent to the left adrenal gland. 4. Asymmetry of the breasts with more fibroglandular tissue on the right. Skin thickening. Suspected inflammatory or neoplastic right breast abnormality. Post radiation changes? Suggest clinical correlation and further evaluation if necessary. Assessment and Plan - Diagnosis (1) Acute respiratory failure with hypoxia Is this a current diagnosis for this admission?: Yes Plan: Continue oxygen supplementation. Secondary to pneumonia. (2) Pneumonia Qualifiers: Pneumonia type: due to unspecified organism Laterality: right Lung location: unspecified part of lung Qualified Code(s): J18.9 - Pneumonia, unspecified organism Is this a current diagnosis for this admission?: Yes Plan: 10/02/2019-patient is admitted for pneumonia most likely community-acquired pneumonia readmitted as inpatient to rule out COVID. To start her on IV Rocephin, Zithromax and IV dexamethasone. GI prophylaxis DVT prophylaxis initiated to provide oxygen supplementations 2 L via nasal cannula. 10/03/2019-Rocephin and azithromycin with IV Decadron for the time being. Monitor COVID testing as well. (3) HTN (hypertension) Qualifiers: Hypertension type: essential hypertension Qualified Code(s): I10 - Essential (primary) hypertension Is this a current diagnosis for this admission?: Yes Plan: 10/01/2019-patient has history of chronic essential hypertension taking Lasix, amlodipine at home. Those medications are on hold at this time. Plan is to put the patient on IV hydralazine 10 mg every 6 hours as needed for systolic blood pressure more than 170. 10/03/2019-currently on lisinopril and hydrochlorothiazide. As needed hydralazine is available. Now that her kidney function is returning to normal consider resuming Lasix. - Time Time Spent with patient: 15-24 minutes Medications reviewed and adjusted accordingly: Yes Anticipated Discharge Disposition: Home, Self Care Anticipated Discharge Timeframe: within 72 hours
[2019-10-03] MEDS ORDERED: ALBUTEROL SULFATE HFA (90 MCG/PUFF) 8 GM MDI IH PRN (18:42)
[2019-10-03] MEDS ORDERED: ALBUTEROL SULFATE HFA (90 MCG/PUFF) 200 PUFF/8.5 GM MDI IH PRN (18:43)
[2019-10-03] MEDS: ZOLPIDEM TARTRATE 5 MG TABLET PO SCH (21:56)
[2019-10-03] MEDS: TAMOXIFEN CITRATE 10 MG TABLET PO SCH (21:57)
[2019-10-04] MEDS: GABAPENTIN 400 MG CAPSULE PO SCH ×3 (05:23→21:53)
[2019-10-04 05:49] LABS: ABSOLUTE EOSINOPHILS # (AUTO) 0.2 10^3/uL (0.0-0.6); ABSOLUTE LYMPHOCYTES (AUTO) 2.1 10^3/uL (0.5-4.7); ABSOLUTE MONOCYTES (AUTO) 0.8 10^3/uL (0.1-1.4); BASOPHILS % (AUTO) 0.3 % (0-2); EOSINOPHILS % (AUTO) 1.3 % (0-6); HEMATOCRIT 31.1 % (36.0-47.0); HEMOGLOBIN 10.6 g/dL (12.0-15.5); LYMPHOCYTES % (AUTO) 17.1 % (13-45); MEAN CORPUSCULAR HEMOGLOBIN 31.4 pg (27.0-33.4); MEAN CORPUSCULAR HGB CONC 33.9 g/dL (32.0-36.0); MEAN CORPUSCULAR VOLUME 93 fl (80-97); MONOCYTES % (AUTO) 6.5 % (3-13); PLATELET COUNT 208 10^3/uL (150-450); RED BLOOD COUNT 3.36 10^6/uL (3.72-5.28); RED CELL DISTRIBUTION WIDTH 12.9 % (11.5-14.0); SEGMENTED NEUTROPHILS % (AUTO) 74.8 % (42-78); TOTAL CELLS COUNTED % (AUTO) 100 %
[2019-10-04] MEDS: HEPARIN SOD (PORCINE) 5,000 UNIT/ML 1 ML VIAL SUBCUT SCH ×3 (06:05→21:53)
[2019-10-04 06:12] LABS: ANION GAP 5 (5-19); BLOOD UREA NITROGEN 19 mg/dL (7-20); CARBON DIOXIDE 30 mmol/L (22-30); CHLORIDE 101 mmol/L (98-107); GLUCOSE 81 mg/dL (75-110); POTASSIUM 3.9 mmol/L (3.6-5.0)
[2019-10-04] MEDS: FUROSEMIDE 20 MG TABLET PO SCH (08:51)
[2019-10-04] MEDS: CEFTRIAXONE RTU 2 GM/D5W 50 ML IV SCH (08:51)
[2019-10-04] MEDS: AZITHROMYCIN 500 MG in DEXTROSE 5%-WATER 250 ML IV SCH (10:00)
[2019-10-04] MEDS: DEXAMETHASONE SOD PHOSPHATE INJ 4 MG/1 ML VIAL IV SCH (10:03)
[2019-10-04] MEDS: HYDROCHLOROTHIAZIDE 25 MG TABLET PO SCH (10:05)
[2019-10-04] MEDS: TIZANIDINE HCL 4 MG TABLET PO SCH ×2 (10:05→17:03)
[2019-10-04] MEDS: MAGNESIUM OXIDE 400 MG TABLET PO SCH ×2 (10:05→17:03)
[2019-10-04] MEDS: LORATADINE 10 MG TABLET PO SCH (10:05)
[2019-10-04] MEDS: LISINOPRIL 10 MG TABLET PO SCH (10:05)
[2019-10-04] MEDS: ATORVASTATIN CALCIUM 10 MG TABLET PO SCH (10:05)
[2019-10-04] MEDS: METHADONE HCL 10 MG TABLET PO SCH ×2 (10:05→21:53)
[2019-10-04] MEDS: PANTOPRAZOLE SODIUM 40 MG TABLET.DR PO SCH (10:06)
--- NOTE | 2019-10-04 10:21 | PDOC PROGRESS REPORT ---
Subjective Progress Note for:: 10/04/19 Subjective:: 68 year old female with history of hypertension, hysterectomy, breast cancer status post radiation and tamoxifen, history of pulmonary embolism, came to the emergency room with complaints of fever and shortness of breath of 2 days duration. She is coughing up sputum unable to give a description. Denies any nausea vomiting diarrhea or abdominal pain. Denies any exposure to the COVID. No family members at home are sick. Patient has history of pneumonia before several years ago. He agreed to stay in the hospital for further management, covid test is pending. 10/04/19-COVID POSITIVE on rocephin, Zithromax and IV dexamethasone. Pulse ox is 96% on 2 L. Comfortably in the bed communicating well. Nurses are losing the IV access frequently so I discussed the plan with radiology doing good arrange for PICC line. Blood cultures are negative so far. Reason For Visit: PNEUMONIA Physical Exam Vital Signs: Temp Pulse Resp BP Pulse Ox 97.8 F 56 L 18 143/62 H 96 10/04/19 00:29 10/04/19 07:00 10/04/19 00:29 10/04/19 00:29 10/04/19 00:29 Intake & Output 10/03/19 10/04/19 10/05/19 06:59 06:59 06:59 Intake Total 2526 1910 Balance 2526 1910 Weight 82.2 kg 84 kg General appearance: PRESENT: no acute distress, well-developed Head exam: PRESENT: atraumatic Eye exam: PRESENT: PERRLA Mouth exam: PRESENT: neck supple Teeth exam: PRESENT: poor dentation Neck exam: ABSENT: carotid bruit, JVD, lymphadenopathy, thyromegaly Respiratory exam: PRESENT: decreased breath sounds Cardiovascular exam: PRESENT: RRR. ABSENT: diastolic murmur, rubs, systolic murmur Pulses: PRESENT: normal dorsalis pedis pul GI/Abdominal exam: PRESENT: normal bowel sounds, soft. ABSENT: distended, gu arding, mass, organolmegaly, rebound, tenderness Rectal exam: PRESENT: deferred Extremities exam: PRESENT: full ROM. ABSENT: calf tenderness, clubbing, pedal edema Neurological exam: PRESENT: alert, awake, oriented to person, oriented to place, oriented to time, oriented to situation, CN II-XII grossly intact. ABSENT: mot or sensory deficit Psychiatric exam: PRESENT: appropriate affect, normal mood. ABSENT: homicidal ideation, suicidal ideation Skin exam: PRESENT: dry, intact, warm. ABSENT: cyanosis, rash Results Laboratory Results: 10/04/19 05:11 10/04/19 05:11 10/04/19 10/04/19 05:11 05:11 WBC 12.0 H RBC 3.36 L Hgb 10.6 L Hct 31.1 L MCV 93 MCH 31.4 MCHC 33.9 RDW 12.9 Plt Count 208 Seg Neutrophils % 74.8 Sodium 136.3 L Potassium 3.9 Chloride 101 Carbon Dioxide 30 Anion Gap 5 BUN 19 Creatinine 1.04 Est GFR ( Amer) > 60 Glucose 81 Calcium 9.0 Magnesium 1.5 L 10/02/19 10/03/19 04:43 05:07 Troponin I < 0.012 < 0.012 NT-Pro-B Natriuret Pep 2380 H Impressions: Chest X-Ray 10/02/19 04:23 IMPRESSION: Small patchy opacity of the right upper and right lower lung field. Differential diagnosis includes atypical pneumonitis. CTA pending. Chest/Abdomen CTA 10/02/19 05:46 IMPRESSION: 1. Suspected pulmonary hypertension. No evidence for pulmonary embolus. Enlarged left atrium of the heart and pulmonary veins. 2. Moderate diffuse infiltrate in the right lung mainly right lower lobe but also right upper lobe involvement. Combination of groundglass opacities and consolidations. No pleural disease. Findings suspicious for pneumonia and could be compatible with viral etiology. Post radiation changes? 3. Suspected mild fatty liver. Narrowing at the origin of the celiac artery. Chronic partially calcified lesion adherent to the left adrenal gland. 4. Asymmetry of the breasts with more fibroglandular tissue on the right. Skin thickening. Suspected inflammatory or neoplastic right breast abnormality. Post radiation changes? Suggest clinical correlation and further evaluation if necessary. Assessment and Plan - Diagnosis (1) Pneumonia Qualifiers: Pneumonia type: due to unspecified organism Laterality: right Lung location: unspecified part of lung Qualified Code(s): J18.9 - Pneumonia, unspecified organism Is this a current diagnosis for this admission?: Yes Plan: 10/02/2019-patient is admitted for pneumonia most likely community-acquired pneumonia readmitted as inpatient to rule out COVID. To start her on IV Rocephin, Zithromax and IV dexamethasone. GI prophylaxis DVT prophylaxis in itiated to provide oxygen supplementations 2 L via nasal cannula. 10/03/2019-Rocephin and azithromycin with IV Decadron for the time being. Monitor COVID testing as well. 10/04/2019-patient is admitted with community-acquired pneumonia COVID test came back positive. Patient is presently on IV Rocephin, Zithromax, IV dexamethasone. Discussed the plan of care with the nursing traffic supervisor Massiel and requested to make sure the health department is notified about the positive result. Pulse ox is 96% on 2 L. (2) Hypoxia Is this a current diagnosis for this admission?: Yes Plan: 10/02/2019-patient came in with acute hypoxia requiring oxygen supplementations in the ER. Pulse ox is 97% on 4 L at this time. Most likely cause is underlying pneumonia. Plan is to continue the antibiotic therapy blood cultures are pending. 04/05/2019-patient came in with hypoxia acute hypoxia requiring oxygen supplementations in the ER. Pulse ox is improving 96% on 2 L this morning. Most likely secondary to underlying COVID pneumonia. (3) HTN (hypertension) Qualifiers: Hypertension type: essential hypertension Qualified Code(s): I10 - Essential (primary) hypertension Is this a current diagnosis for this admission?: No Plan: 10/01/2019-patient has history of chronic essential hypertension taking Lasix, amlodipine at home. Those medications are on hold at this time. Plan is to put the patient on IV hydralazine 10 mg every 6 hours as needed for systolic blood pressure more than 170. 10/03/2019-currently on lisinopril and hydrochlorothiazide. As needed hydralazine is available. Now that her kidney function is returning to normal consider resuming Lasix. 10/04/2019-blood pressure today is 143/62. Present on her lisinopril, hydrochlorothiazide plan is to restart Lasix 20 mg p.o. daily from today. (4) KARIME (acute kidney injury) Is this a current diagnosis for this admission?: Yes Plan: 10/04/2019-patient's admission serum creatinine is 1.6 improved to 1.04 today. KARIME most likely secondary to prerenal causes resolved. - Time Anticipated Discharge Disposition: Home, Self Care Anticipated Discharge Timeframe: within 72 hours
--- NOTE | 2019-10-04 15:42 | RADIOLOGY REPORT (SQ) ---
EXAM DESCRIPTION: PICC INSERTION IMAGES COMPLETED DATE/TIME: 10/04/2019 3:04 pm REASON FOR STUDY: iv access COMPARISON: None. FLUOROSCOPY TIME: 2 minutes 9 seconds. 2 images saved to PACS. TECHNIQUE: Fluoroscopic and ultrasound guided PICC placement. LIMITATIONS: None. PROCEDURE: After written consent and assessment were obtained, the patient was brought into the fluo roscopy room and placed supine on the table. Ultrasound evaluation of potential access sites were per formed. After successfully identifying a patent left basilic vein, the left arm was prepped and drape d in a sterile fashion along with the ultrasound probe. The entry site was anesthetized with 1% lidoc walter. A 21 gauge 7 cm needle was advanced through the skin and into the basilic vein under live ultra sound guidance. An ultrasound image was saved to PACS confirming access site. A .018 guide wire was then inserted through the needle and into the venous system. The needle was then removed and an 11 b lade scalpel was used to make a 1cm skin incision. A 5 fr peel-away sheath was advanced over the wir e and into the venous system. A measurement was then made using the existing wire and live fluoroscop ic guidance. The wire was then removed and trimmed. The PICC was advanced through the peel-away sheat h and into the venous system. The peel-away sheath was removed and the catheter was adhered to the pa tients arm with a stat lock. The catheter was then aspirated and flushed and a sterile bandage was pl aced over the access site. A fluoroscopic spot image was saved to PACS confirming the catheter tip w ithin the superior vena cava. IMPRESSION: SUCCESSFUL PLACEMENT OF A 5 FR DUAL LUMEN 37 CM PICC IN THE LEFT BASILIC VEIN. COMMENT: Patient medication list reviewed: Yes- Quality ID# 130:Eligible professional attests to doc umenting in the medical record they obtained, updated, or reviewed the patient's current medications. . Quality ID 145: Final reports for procedures using fluoroscopy that document radiation exposure eve hardik, or exposure time and number of fluorographic images (if radiation exposure indices are not avail able) Quality ID #76: The patient was prepped and draped using maximum sterile barrier technique including cap, mask, sterile gown, sterile gloves, a large sterile sheet, hand hygiene, and 2% Chlorhexidine fo r cutaneous antisepsis. When ultrasound is used, sterile ultrasound techniques are followed requiring sterile gel and sterile probes. TECHNICAL DOCUMENTATION: JOB ID: [id number]- All Rights Reserved Reading location - IP/workstation name: [email or web address]
[2019-10-04] MEDS: ACETAMINOPHEN 325 MG TABLET PO PRN (17:03)
[2019-10-04] MEDS: TAMOXIFEN CITRATE 10 MG TABLET PO SCH (21:52)
[2019-10-04] MEDS: ZOLPIDEM TARTRATE 5 MG TABLET PO SCH (21:53)
[2019-10-05] MEDS: HEPARIN SOD (PORCINE) 5,000 UNIT/ML 1 ML VIAL SUBCUT SCH ×3 (05:11→21:04)
[2019-10-05] MEDS: GABAPENTIN 400 MG CAPSULE PO SCH ×3 (05:11→21:04)
[2019-10-05 05:56] LABS: ABSOLUTE LYMPHOCYTES (AUTO) 1.6 10^3/uL (0.5-4.7); ABSOLUTE MONOCYTES (AUTO) 0.8 10^3/uL (0.1-1.4); ABSOLUTE NEUT (AUTO) 8.6 10^3/uL (1.7-8.2); BASOPHILS % (AUTO) 0.2 % (0-2); EOSINOPHILS % (AUTO) 0.2 % (0-6); HEMOGLOBIN 10.8 g/dL (12.0-15.5); LYMPHOCYTES % (AUTO) 14.3 % (13-45); MEAN CORPUSCULAR HEMOGLOBIN 31.3 pg (27.0-33.4); MEAN CORPUSCULAR HGB CONC 33.8 g/dL (32.0-36.0); MEAN CORPUSCULAR VOLUME 93 fl (80-97); PLATELET COUNT 217 10^3/uL (150-450); RED BLOOD COUNT 3.46 10^6/uL (3.72-5.28); RED CELL DISTRIBUTION WIDTH 12.3 % (11.5-14.0); SEGMENTED NEUTROPHILS % (AUTO) 78.3 % (42-78); TOTAL CELLS COUNTED % (AUTO) 100 %
[2019-10-05 06:16] LABS: ALBUMIN 3.2 g/dL (3.5-5.0); ALKALINE PHOSPHATASE 42 U/L (38-126); ASPARTATE AMINO TRANSFERASE 30 U/L (14-36); BILIRUBIN,TOTAL 0.4 mg/dL (0.2-1.3); BLOOD UREA NITROGEN 23 mg/dL (7-20); CALCIUM 9.1 mg/dL (8.4-10.2); CARBON DIOXIDE 31 mmol/L (22-30); GLUCOSE 90 mg/dL (75-110); POTASSIUM 4.3 mmol/L (3.6-5.0); TOTAL PROTEIN 5.8 g/dL (6.3-8.2)
[2019-10-05 06:22] LABS: CHLORIDE 100 mmol/L (98-107)
[2019-10-05 06:23] LABS: ANION GAP 4 (5-19)
[2019-10-05] MEDS ORDERED: POTASSIUM CHLORIDE 10 MEQ TABLET.ER PO ONE (08:01)
[2019-10-05] MEDS: FUROSEMIDE 20 MG TABLET PO SCH (08:39)
[2019-10-05] MEDS: CEFTRIAXONE RTU 2 GM/D5W 50 ML IV SCH (08:39)
[2019-10-05] MEDS: DEXAMETHASONE SOD PHOSPHATE INJ 4 MG/1 ML VIAL IV SCH (09:53)
[2019-10-05] MEDS: LISINOPRIL 10 MG TABLET PO SCH (09:54)
[2019-10-05] MEDS: MAGNESIUM OXIDE 400 MG TABLET PO SCH ×2 (09:54→17:19)
[2019-10-05] MEDS: ATORVASTATIN CALCIUM 10 MG TABLET PO SCH (09:54)
[2019-10-05] MEDS: HYDROCHLOROTHIAZIDE 25 MG TABLET PO SCH (09:54)
[2019-10-05] MEDS: LORATADINE 10 MG TABLET PO SCH (09:55)
[2019-10-05] MEDS: TIZANIDINE HCL 4 MG TABLET PO SCH ×2 (09:55→17:19)
[2019-10-05] MEDS: METHADONE HCL 10 MG TABLET PO SCH ×2 (09:55→21:04)
[2019-10-05] MEDS: PANTOPRAZOLE SODIUM 40 MG TABLET.DR PO SCH (09:55)
[2019-10-05] MEDS: AZITHROMYCIN 500 MG in DEXTROSE 5%-WATER 250 ML IV SCH (09:55)
--- NOTE | 2019-10-05 14:37 | PDOC PROGRESS REPORT ---
Subjective Progress Note for:: 10/05/19 Subjective:: DIPAK JANE is a 68 year old female with history of hypertension, hysterectomy, breast cancer status post radiation and tamoxifen, history of pulmonary embolism, came to the emergency room with complaints of fever and shortness of breath of 2 days duration. 10/05/2019. Comfortably resting in bed in no apparent distress, alert and oriented x3, cooperative with physical examination, answering question., Denies any fever, chills, nausea, vomiting, diarrhea, constipation or any urinary symptoms. Still requiring supplemental oxygen, possible DC home tomorrow. Reason For Visit: PNEUMONIA Physical Exam Vital Signs: Temp Pulse Resp BP Pulse Ox 97.6 F 54 L 16 96/60 L 100 10/05/19 12:52 10/05/19 12:52 10/05/19 12:52 10/05/19 12:52 10/05/19 12:52 Intake & Output 10/04/19 10/05/19 10/06/19 06:59 06:59 06:59 Intake Total 1909 161 Balance 1909 161 Weight 84 kg 84.2 kg General appearance: PRESENT: no acute distress, obese, well-developed, well- nourished Head exam: PRESENT: atraumatic, normocephalic Respiratory exam: PRESENT: clear to auscultation alida. ABSENT: rales, rhonchi, wheezes Cardiovascular exam: PRESENT: RRR. ABSENT: diastolic murmur, rubs, systolic murmur GI/Abdominal exam: PRESENT: normal bowel sounds, soft. ABSENT: distended, guarding, mass, organolmegaly, rebound, tenderness Neurological exam: PRESENT: alert, awake, oriented to person, oriented to place, oriented to time, oriented to situation, CN II-XII grossly intact. ABSENT: motor sensory deficit Results Laboratory Results: 10/05/19 04:45 10/05/19 04:45 10/05/19 10/05/19 04:45 04:45 WBC 11.0 H RBC 3.46 L Hgb 10.8 L Hct 32.0 L MCV 93 MCH 31.3 MCHC 33.8 RDW 12.3 Plt Count 217 Seg Neutrophils % 78.3 H Sodium 134.7 L Potassium 4.3 Chloride 100 Carbon Dioxide 31 H Anion Gap 4 L BUN 23 H Creatinine 1.00 Est GFR ( Amer) > 60 Glucose 90 Calcium 9.1 Magnesium 1.3 L Total Bilirubin 0.4 AST 30 Alkaline Phosphatase 42 Total Protein 5.8 L Albumin 3.2 L 10/02/19 10/03/19 04:43 05:07 Troponin I < 0.012 < 0.012 NT-Pro-B Natriuret Pep 2380 H Impressions: Chest X-Ray 10/02/19 04:23 IMPRESSION: Small patchy opacity of the right upper and right lower lung field. Differential diagnosis includes atypical pneumonitis. CTA pending. Chest/Abdomen CTA 10/02/19 05:46 IMPRESSION: 1. Suspected pulmonary hypertension. No evidence for pulmonary embolus. Enlarged left atrium of the heart and pulmonary veins. 2. Moderate diffuse infiltrate in the right lung mainly right lower lobe but also right upper lobe involvement. Combination of groundglass opacities and consolidations. No pleural disease. Findings suspicious for pneumonia and could be compatible with viral etiology. Post radiation changes? 3. Suspected mild fatty liver. Narrowing at the origin of the celiac artery. Chronic partially calcified lesion adherent to the left adrenal gland. 4. Asymmetry of the breasts with more fibroglandular tissue on the right. Skin thickening. Suspected inflammatory or neoplastic right breast abnormality. Post radiation changes? Suggest clinical correlation and further evaluation if necessary. PICC Line Insertion 10/04/19 00:00 IMPRESSION: SUCCESSFUL PLACEMENT OF A 5 FR DUAL LUMEN 37 CM PICC IN THE LEFT BASILIC VEIN. Assessment and Plan - Diagnosis (1) Pneumonia due to COVID-19 virus Is this a current diagnosis for this admission?: Yes Plan: COVID-19 serology positive. Unknown exposure. On tamoxifen. History of breast cancer. WBC trending downn. SPO2 WNL 2 L. Afebrile. Day 3 IV antibiotics. Day 3 IV azithromycin. Day 3 IV ceftriaxone. Day 3 IV dexamethasone. Continue supplemental oxygen, duo nebs, zinc sulfate, empiric IV antibiotics, IV steroids, flutter valve, incentive spirometry, contact isolation. (2) Acute respiratory failure with hypoxia Is this a current diagnosis for this admission?: Yes Plan: Due to 1. Plan as per. (3) HTN (hypertension) Qualifiers: Hypertension type: essential hypertension Qualified Code(s): I10 - Essential (primary) hypertension Is this a current diagnosis for this admission?: No Plan: Euvolemic. Normotensive. Continue current meds. Outpatient PCP follow-up. (4) Pneumonia Qualifiers: Pneumonia type: due to unspecified organism Laterality: right Lung location: unspecified part of lung Qualified Code(s): J18.9 - Pneumonia, unspecified organism Is this a current diagnosis for this admission?: Yes Plan: Due to #1. Blood cultures negative. Plan as per #1. (5) History of breast cancer Is this a current diagnosis for this admission?: Yes Plan: On tamoxifen. Outpatient PCP follow-up. (6) Obesity (BMI 30.0-34.9) Is this a current diagnosis for this admission?: Yes Plan: BMI 32.9. Diet and lifestyle modification recommended. (7) Acute kidney injury superimposed on CKD Is this a current diagnosis for this admission?: Yes Plan: Prerenal. Likely due to volume depletion. Resolved. Monitor volume status, monitor electrolytes replace as needed. Avoid nephrotoxic meds. - Time Time Spent with patient: 15-24 minutes Medications reviewed and adjusted accordingly: Yes Anticipated Discharge Disposition: Home, Self Care Anticipated Discharge Timeframe: within 24 hours
[2019-10-05] MEDS: TAMOXIFEN CITRATE 10 MG TABLET PO SCH (21:04)
[2019-10-05] MEDS: ZOLPIDEM TARTRATE 5 MG TABLET PO SCH (21:04)
[2019-10-06] MEDS: GABAPENTIN 400 MG CAPSULE PO SCH ×3 (05:04→22:01)
[2019-10-06] MEDS: HEPARIN SOD (PORCINE) 5,000 UNIT/ML 1 ML VIAL SUBCUT SCH ×3 (05:04→22:01)
[2019-10-06] MEDS ORDERED: MAGNESIUM SULFATE/D5W 1 GM/100 ML RTUPB IV ONE ×2 (06:59→10:15)
[2019-10-06] MEDS: METHADONE HCL 10 MG TABLET PO SCH ×2 (10:48→22:01)
[2019-10-06] MEDS: DEXAMETHASONE SOD PHOSPHATE INJ 4 MG/1 ML VIAL IV SCH (10:48)
[2019-10-06] MEDS: TIZANIDINE HCL 4 MG TABLET PO SCH ×2 (10:48→17:28)
[2019-10-06] MEDS: LORATADINE 10 MG TABLET PO SCH (10:49)
[2019-10-06] MEDS: FUROSEMIDE 20 MG TABLET PO SCH (10:49)
[2019-10-06] MEDS: ATORVASTATIN CALCIUM 10 MG TABLET PO SCH (10:49)
[2019-10-06] MEDS: PANTOPRAZOLE SODIUM 40 MG TABLET.DR PO SCH (10:49)
[2019-10-06] MEDS: MAGNESIUM OXIDE 400 MG TABLET PO SCH ×2 (10:50→17:29)
[2019-10-06] MEDS: LISINOPRIL 10 MG TABLET PO SCH (10:50)
[2019-10-06] MEDS: AZITHROMYCIN 500 MG in DEXTROSE 5%-WATER 250 ML IV SCH (10:51)
[2019-10-06] MEDS: HYDROCHLOROTHIAZIDE 25 MG TABLET PO SCH (10:52)
[2019-10-06] MEDS: CEFTRIAXONE RTU 2 GM/D5W 50 ML IV SCH (10:54)
--- NOTE | 2019-10-06 11:41 | PDOC PROGRESS REPORT ---
Subjective Progress Note for:: 10/06/19 Subjective:: DIPAK JANE is a 68 year old female with history of hypertension, hysterectomy, breast cancer status post radiation and tamoxifen, history of pulmonary embolism, came to the emergency room with complaints of fever and shortness of breath of 2 days duration. 10/05/2019. Comfortably resting in bed in no apparent distress, alert and oriented x3, cooperative with physical examination, answering question., Denies any fever, chills, nausea, vomiting, diarrhea, constipation or any urinary symptoms. Still requiring supplemental oxygen, possible DC home tomorrow. 10/06/2019. No acute events overnight. Could not sleep much last night. Resting in bed no apparent distress, on room air, denies any fever, chills, nausea, vomiting, diarrhea, constipation or any urinary symptoms. Patient still having leukocytosis, possible discharge home tomorrow. Reason For Visit: PNEUMONIA Physical Exam Vital Signs: Temp Pulse Resp BP Pulse Ox 98.2 F 58 L 12 148/69 H 96 10/06/19 08:30 10/06/19 08:30 10/06/19 03:41 10/06/19 08:30 10/06/19 08:30 Intake & Output 10/05/19 10/06/19 10/07/19 06:59 06:59 06:59 Intake Total 1610 1276 Balance 1610 1276 Weight 84.2 kg 80.5 kg General appearance: PRESENT: no acute distress, obese Head exam: PRESENT: atraumatic, normocephalic Respiratory exam: PRESENT: clear to auscultation alida. ABSENT: rales, rhonchi, wheezes Cardiovascular exam: PRESENT: RRR. ABSENT: diastolic murmur, rubs, systolic m urmur GI/Abdominal exam: PRESENT: normal bowel sounds, soft. ABSENT: distended, guarding, mass, organolmegaly, rebound, tenderness Neurological exam: PRESENT: alert, awake, oriented to person, oriented to place, oriented to time, oriented to situation, CN II-XII grossly intact. ABSENT: motor sensory deficit Results Laboratory Results: 10/05/19 04:45 10/05/19 04:45 10/02/19 10/03/19 04:43 05:07 Troponin I < 0.012 < 0.012 NT-Pro-B Natriuret Pep 2380 H Impressions: Chest X-Ray 10/02/19 04:23 IMPRESSION: Small patchy opacity of the right upper and right lower lung field. Differential diagnosis includes atypical pneumonitis. CTA pending. Chest/Abdomen CTA 10/02/19 05:46 IMPRESSION: 1. Suspected pulmonary hypertension. No evidence for pulmonary embolus. Enlarged left atrium of the heart and pulmonary veins. 2. Moderate diffuse infiltrate in the right lung mainly right lower lobe but also right upper lobe involvement. Combination of groundglass opacities and consolidations. No pleural disease. Findings suspicious for pneumonia and could be compatible with viral etiology. Post radiation changes? 3. Suspected mild fatty liver. Narrowing at the origin of the celiac artery. Chronic partially calcified lesion adherent to the left adrenal gland. 4. Asymmetry of the breasts with more fibroglandular tissue on the right. Skin thickening. Suspected inflammatory or neoplastic right breast abnormality. Post radiation changes? Suggest clinical correlation and further evaluation if necessary. PICC Line Insertion 10/04/19 00:00 IMPRESSION: SUCCESSFUL PLACEMENT OF A 5 FR DUAL LUMEN 37 CM PICC IN THE LEFT BASILIC VEIN. Assessment and Plan - Diagnosis (1) Pneumonia due to COVID-19 virus Is this a current diagnosis for this admission?: Yes Plan: COVID-19 serology positive. Unknown exposure. On tamoxifen. History of breast cancer. WBC trending downn. SPO2 on RA. Afebrile. Day 4 IV antibiotics. Day 4 IV azithromycin. Day 4 IV ceftriaxone. Day 4 IV dexamethasone. Continue supplemental oxygen, duo nebs, zinc sulfate, empiric IV antibiotics, IV steroids, flutter valve, incentive spirometry, contact isolation. (2) Acute respiratory failure with hypoxia Is this a current diagnosis for this admission?: Yes Plan: Due to 1. Plan as per. (3) HTN (hypertension) Qualifiers: Hypertension type: essential hypertension Qualified Code(s): I10 - Essential (primary) hypertension Is this a current diagnosis for this admission?: No Plan: Euvolemic. Normotensive. Continue current meds. Outpatient PCP follow-up. (4) Pneumonia Qualifiers: Pneumonia type: due to unspecified organism Laterality: right Lung location: unspecified part of lung Qualified Code(s): J18.9 - Pneumonia, unspecified organism Is this a current diagnosis for this admission?: Yes Plan: Due to #1. Blood cultures negative. Plan as per #1. (5) History of breast cancer Is this a current diagnosis for this admission?: Yes Plan: On tamoxifen. Outpatient PCP follow-up. (6) Obesity (BMI 30.0-34.9) Is this a current diagnosis for this admission?: Yes Plan: BMI 32.9. Diet and lifestyle modification recommended. (7) Acute kidney injury superimposed on CKD Is this a current diagnosis for this admission?: Yes Plan: Prerenal. Likely due to volume depletion. Resolved. Monitor volume status, monitor electrolytes replace as needed. Avoid nephrotoxic meds. - Time Time Spent with patient: 15-24 minutes Medications reviewed and adjusted accordingly: Yes Anticipated Discharge Disposition: Home, Self Care Anticipated Discharge Timeframe: within 24 hours
[2019-10-06] MEDS: TAMOXIFEN CITRATE 10 MG TABLET PO SCH (22:01)
[2019-10-06] MEDS: TEMAZEPAM 15 MG CAPSULE PO SCH (22:01)
[2019-10-07] MEDS: HEPARIN SOD (PORCINE) 5,000 UNIT/ML 1 ML VIAL SUBCUT SCH ×3 (05:10→21:27)
[2019-10-07] MEDS: GABAPENTIN 400 MG CAPSULE PO SCH ×3 (05:10→21:27)
[2019-10-07 06:44] LABS: ABSOLUTE EOSINOPHILS # (AUTO) 0.1 10^3/uL (0.0-0.6); ABSOLUTE MONOCYTES (AUTO) 1.2 10^3/uL (0.1-1.4); ABSOLUTE NEUT (AUTO) 8.7 10^3/uL (1.7-8.2); BASOPHILS % (AUTO) 0.3 % (0-2); EOSINOPHILS % (AUTO) 0.8 % (0-6); HEMOGLOBIN 12.6 g/dL (12.0-15.5); LYMPHOCYTES % (AUTO) 22.8 % (13-45); MEAN CORPUSCULAR HEMOGLOBIN 30.7 pg (27.0-33.4); MEAN CORPUSCULAR HGB CONC 33.2 g/dL (32.0-36.0); MEAN CORPUSCULAR VOLUME 93 fl (80-97); MONOCYTES % (AUTO) 9.3 % (3-13); PLATELET COUNT 257 10^3/uL (150-450); RED BLOOD COUNT 4.11 10^6/uL (3.72-5.28); RED CELL DISTRIBUTION WIDTH 12.9 % (11.5-14.0); SEGMENTED NEUTROPHILS % (AUTO) 66.8 % (42-78); TOTAL CELLS COUNTED % (AUTO) 100 %; WHITE BLOOD COUNT 13.1 10^3/uL (4.0-10.5)
[2019-10-07 07:03] LABS: ANION GAP 6 (5-19); BLOOD UREA NITROGEN 25 mg/dL (7-20); CALCIUM 9.5 mg/dL (8.4-10.2); CARBON DIOXIDE 30 mmol/L (22-30); CHLORIDE 97 mmol/L (98-107); GLUCOSE 111 mg/dL (75-110); POTASSIUM 3.8 mmol/L (3.6-5.0)
[2019-10-07] MEDS ORDERED: MAGNESIUM SULFATE/D5W 1 GM/100 ML RTUPB IV ONE (07:32)
[2019-10-07] MEDS: FUROSEMIDE 20 MG TABLET PO SCH (08:05)
[2019-10-07] MEDS: CEFTRIAXONE RTU 2 GM/D5W 50 ML IV SCH (08:08)
--- NOTE | 2019-10-07 10:21 | PDOC PROGRESS REPORT ---
Subjective Progress Note for:: 10/07/19 Subjective:: DIPAK JANE is a 68 year old female with history of hypertension, hysterectomy, breast cancer status post radiation and tamoxifen, history of pulmonary embolism, came to the emergency room with complaints of fever and shortness of breath of 2 days duration. 10/05/2019. Comfortably resting in bed in no apparent distress, alert and oriented x3, cooperative with physical examination, answering question., Denies any fever, chills, nausea, vomiting, diarrhea, constipation or any urinary symptoms. Still requiring supplemental oxygen, possible DC home tomorrow. 10/06/2019. No acute events overnight. Could not sleep much last night. Resting in bed no apparent distress, on room air, denies any fever, chills, nausea, vomiting, diarrhea, constipation or any urinary symptoms. Patient still having leukocytosis, possible discharge home tomorrow. 10/07/2019. No acute events overnight. Currently resting bed no apparent distress, denies any fever, chills, nausea, vomiting, diarrhea, constipation or any urinary symptoms. On room air SPO2 WNL however patient still has significant leukocytosis and elevated d-dimer. Possible discharge home tomorrow. Reason For Visit: PNEUMONIA Physical Exam Vital Signs: Temp Pulse Resp BP Pulse Ox 98.6 F 64 22 H 141/64 H 97 10/07/19 07:00 10/07/19 07:00 10/07/19 07:00 10/07/19 07:00 10/07/19 03:18 Intake & Output 10/06/19 10/07/19 10/08/19 06:59 06:59 06:59 Intake Total 1276 1262 Balance 1276 1262 Weight 80.5 kg 79.5 kg General appearance: PRESENT: no acute distress, obese, well-developed, well- nourished Head exam: PRESENT: atraumatic, normocephalic Respiratory exam: PRESENT: clear to auscultation alida. ABSENT: rales, rhonchi, wheezes Cardiovascular exam: PRESENT: RRR. ABSENT: diastolic murmur, rubs, systolic murmur GI/Abdominal exam: PRESENT: normal bowel sounds, soft. ABSENT: distended, guarding, mass, organolmegaly, rebound, tenderness Extremities exam: PRESENT: full ROM. ABSENT: calf tenderness, clubbing, pedal e bala Neurological exam: PRESENT: alert, awake, oriented to person, oriented to place, oriented to time, oriented to situation, CN II-XII grossly intact. ABSENT: motor sensory deficit Results Laboratory Results: 10/07/19 06:05 10/07/19 06:05 10/07/19 10/07/19 06:05 06:05 WBC 13.1 H RBC 4.11 Hgb 12.6 Hct 38.0 MCV 93 MCH 30.7 MCHC 33.2 RDW 12.9 Plt Count 257 Seg Neutrophils % 66.8 Sodium 133.1 L Potassium 3.8 Chloride 97 L Carbon Dioxide 30 Anion Gap 6 BUN 25 H Creatinine 0.93 Est GFR ( Amer) > 60 Glucose 111 H Calcium 9.5 Magnesium 1.5 L 10/02/19 05:14 Blood Blood Culture - Final NO GROWTH IN 5 DAYS 10/02/19 04:43 Blood Blood Culture - Final NO GROWTH IN 5 DAYS 10/02/19 10/03/19 04:43 05:07 Troponin I < 0.012 < 0.012 NT-Pro-B Natriuret Pep 2380 H Impressions: Chest X-Ray 10/02/19 04:23 IMPRESSION: Small patchy opacity of the right upper and right lower lung field. Differential diagnosis includes atypical pneumonitis. CTA pending. Chest/Abdomen CTA 10/02/19 05:46 IMPRESSION: 1. Suspected pulmonary hypertension. No evidence for pulmonary embolus. Enlarged left atrium of the heart and pulmonary veins. 2. Moderate diffuse infiltrate in the right lung mainly right lower lobe but also right upper lobe involvement. Combination of groundglass opacities and consolidations. No pleural disease. Findings suspicious for pneumonia and could be compatible with viral etiology. Post radiation changes? 3. Suspected mild fatty liver. Narrowing at the origin of the celiac artery. Chronic partially calcified lesion adherent to the left adrenal gland. 4. Asymmetry of the breasts with more fibroglandular tissue on the right. Skin thickening. Suspected inflammatory or neoplastic right breast abnormality. Post radiation changes? Suggest clinical correlation and further evaluation if necessary. PICC Line Insertion 10/04/19 00:00 IMPRESSION: SUCCESSFUL PLACEMENT OF A 5 FR DUAL LUMEN 37 CM PICC IN THE LEFT BASILIC VEIN. Assessment and Plan - Diagnosis (1) Pneumonia due to COVID-19 virus Is this a current diagnosis for this admission?: Yes Plan: COVID-19 serology positive. Unknown exposure. On tamoxifen. History of breast cancer. WBC trending downn. SPO2 on RA. Afebrile. Day 5 IV antibiotics. Day 5 IV azithromycin. Day 5 IV ceftriaxone. Day 5 IV dexamethasone. Continue supplemental oxygen, duo nebs, zinc sulfate, empiric IV antibiotics, IV steroids, flutter valve, incentive spirometry, contact isolation. (2) Acute respiratory failure with hypoxia Is this a current diagnosis for this admission?: Yes Plan: Due to 1. Plan as per. (3) HTN (hypertension) Qualifiers: Hypertension type: essential hypertension Qualified Code(s): I10 - Essential (primary) hypertension Is this a current diagnosis for this admission?: No Plan: Euvolemic. Normotensive. Continue current meds. Outpatient PCP follow-up. (4) Pneumonia Qualifiers: Pneumonia type: due to unspecified organism Laterality: right Lung location: unspecified part of lung Qualified Code(s): J18.9 - Pneumonia, unspecified organism Is this a current diagnosis for this admission?: Yes Plan: Due to #1. Blood cultures negative. Plan as per #1. (5) History of breast cancer Is this a current diagnosis for this admission?: Yes Plan: On tamoxifen. Outpatient PCP follow-up. (6) Obesity (BMI 30.0-34.9) Is this a current diagnosis for this admission?: Yes Plan: BMI 32.9. Diet and lifestyle modification recommended. (7) Acute kidney injury superimposed on CKD Is this a current diagnosis for this admission?: Yes Plan: Prerenal. Likely due to volume depletion. Resolved. Monitor volume status, monitor electrolytes replace as needed. Avoid nephrotoxic meds. - Time Time Spent with patient: 25-34 minutes Smoking Cessation Education: 3 to 10 minutes Medications reviewed and adjusted accordingly: Yes Anticipated Discharge Disposition: Home, Self Care Anticipated Discharge Timeframe: within 24 hours
[2019-10-07] MEDS: LORATADINE 10 MG TABLET PO SCH (10:43)
[2019-10-07] MEDS: DEXAMETHASONE SOD PHOSPHATE INJ 4 MG/1 ML VIAL IV SCH (10:43)
[2019-10-07] MEDS: TIZANIDINE HCL 4 MG TABLET PO SCH ×2 (10:43→17:40)
[2019-10-07] MEDS: PANTOPRAZOLE SODIUM 40 MG TABLET.DR PO SCH (10:43)
[2019-10-07] MEDS: MAGNESIUM OXIDE 400 MG TABLET PO SCH ×2 (10:44→17:40)
[2019-10-07] MEDS: METHADONE HCL 10 MG TABLET PO SCH ×2 (10:44→21:27)
[2019-10-07] MEDS: ATORVASTATIN CALCIUM 10 MG TABLET PO SCH (10:45)
[2019-10-07] MEDS: LISINOPRIL 10 MG TABLET PO SCH (10:57)
[2019-10-07] MEDS: AZITHROMYCIN 500 MG in DEXTROSE 5%-WATER 250 ML IV SCH (11:01)
[2019-10-07] MEDS: TAMOXIFEN CITRATE 10 MG TABLET PO SCH (21:27)
[2019-10-07] MEDS: TEMAZEPAM 15 MG CAPSULE PO SCH (21:27)
[2019-10-08] MEDS: GABAPENTIN 400 MG CAPSULE PO SCH ×3 (06:01→21:36)
[2019-10-08] MEDS: HEPARIN SOD (PORCINE) 5,000 UNIT/ML 1 ML VIAL SUBCUT SCH ×3 (06:01→21:36)
[2019-10-08 07:03] LABS: HEMATOCRIT 37.4 % (36.0-47.0); HEMOGLOBIN 12.7 g/dL (12.0-15.5); MEAN CORPUSCULAR HGB CONC 33.8 g/dL (32.0-36.0); MEAN CORPUSCULAR VOLUME 92 fl (80-97); PLATELET COUNT 260 10^3/uL (150-450); RED BLOOD COUNT 4.09 10^6/uL (3.72-5.28); RED CELL DISTRIBUTION WIDTH 12.9 % (11.5-14.0); WHITE BLOOD COUNT 18.2 10^3/uL (4.0-10.5)
[2019-10-08 08:17] LABS: ABSOLUTE LYMPHOCYTES# (MANUAL) 3.5 10^3/uL (0.5-4.7); ABSOLUTE MONOCYTES # (MANUAL) 0.9 10^3/uL (0.1-1.4); BAND NEUTROPHILS % (MANUAL) 2 % (3-5); BASOPHILS % (MANUAL) 1 % (0-2); EOSINOPHILS % (MANUAL) 0 % (0-6); LYMPHOCYTES % (MANUAL) 12 % (13-45); MONOCYTES % (MANUAL) 5 % (3-13); SEGMENTED NEUTROPHILS % (MAN) 73 % (42-78); TOTAL CELLS COUNTED 100
[2019-10-08 08:36] LABS: PLATELET COMMENT ADEQUATE; POLYCHROMASIA SLIGHT; WBC MORPHOLOGY COMMENT NN
[2019-10-08] MEDS: METHADONE HCL 10 MG TABLET PO SCH ×2 (10:04→21:17)
[2019-10-08] MEDS: AZITHROMYCIN 500 MG in DEXTROSE 5%-WATER 250 ML IV SCH (10:04)
[2019-10-08] MEDS: LISINOPRIL 10 MG TABLET PO SCH (10:04)
[2019-10-08] MEDS: LORATADINE 10 MG TABLET PO SCH (10:05)
[2019-10-08] MEDS: MAGNESIUM OXIDE 400 MG TABLET PO SCH ×2 (10:05→17:21)
[2019-10-08] MEDS: ATORVASTATIN CALCIUM 10 MG TABLET PO SCH (10:05)
[2019-10-08] MEDS: FUROSEMIDE 20 MG TABLET PO SCH (10:05)
[2019-10-08] MEDS: PANTOPRAZOLE SODIUM 40 MG TABLET.DR PO SCH (10:05)
[2019-10-08] MEDS: CEFTRIAXONE RTU 2 GM/D5W 50 ML IV SCH (10:05)
[2019-10-08] MEDS: TIZANIDINE HCL 4 MG TABLET PO SCH ×2 (10:05→17:21)
--- NOTE | 2019-10-08 10:16 | PDOC PROGRESS REPORT ---
Subjective Progress Note for:: 10/08/19 Subjective:: DIPAK JANE is a 68 year old female with history of hypertension, hysterectomy, breast cancer status post radiation and tamoxifen, history of pulmonary embolism, came to the emergency room with complaints of fever and shortness of breath of 2 days duration. 10/05/2019. Comfortably resting in bed in no apparent distress, alert and oriented x3, cooperative with physical examination, answering question., Denies any fever, chills, nausea, vomiting, diarrhea, constipation or any urinary symptoms. Still requiring supplemental oxygen, possible DC home tomorrow. 10/06/2019. No acute events overnight. Could not sleep much last night. Resting in bed no apparent distress, on room air, denies any fever, chills, nausea, vomiting, diarrhea, constipation or any urinary symptoms. Patient still having leukocytosis, possible discharge home tomorrow. 10/07/2019. No acute events overnight. Currently resting bed no apparent distress, denies any fever, chills, nausea, vomiting, diarrhea, constipation or any urinary symptoms. On room air SPO2 WNL however patient still has significant leukocytosis and elevated d-dimer. Possible discharge home tomorrow. 10/08/2019. No acute events overnight. Patient currently receiving apheresis, denies any fever, chills, chest pain, nausea, vomiting, diarrhea, constipation or any urinary symptoms. Patient could potentially be discharged home with outpatient patient has significant leukocytosis, bandemia and lymphopenia and hypomagnesemia. Will discharge home tomorrow. Reason For Visit: PNEUMONIA Physical Exam Vital Signs: Temp Pulse Resp BP Pulse Ox 98.1 F 58 L 20 142/55 H 96 10/08/19 08:16 10/08/19 08:16 10/08/19 07:00 10/08/19 08:16 10/08/19 08:16 Intake & Output 10/07/19 10/08/19 10/09/19 06:59 06:59 06:59 Intake Total 1262 1074 Output Total 200 Balance 1262 874 Weight 79.5 kg 79.8 kg General appearance: PRESENT: no acute distress, obese, well-developed, well- nourished Head exam: PRESENT: atraumatic, normocephalic Respiratory exam: PRESENT: clear to auscultation alida. ABSENT: rales, rhonchi, wheezes Cardiovascular exam: PRESENT: RRR. ABSENT: diastolic murmur, rubs, systolic murmur GI/Abdominal exam: PRESENT: normal bowel sounds, soft. ABSENT: distended, guarding, mass, organolmegaly, rebound, tenderness Extremities exam: PRESENT: full ROM. ABSENT: calf tenderness, clubbing, pedal edema Neurological exam: PRESENT: alert, awake, oriented to person, oriented to place, oriented to time, oriented to situation, CN II-XII grossly intact. ABSENT: motor sensory deficit Results Laboratory Results: 10/08/19 06:35 10/07/19 06:05 10/08/19 06:35 WBC 18.2 H RBC 4.09 Hgb 12.7 Hct 37.4 MCV 92 MCH 31.0 MCHC 33.8 RDW 12.9 Plt Count 260 Seg Neutrophils % Not Reportable 10/02/19 10/03/19 04:43 05:07 Troponin I < 0.012 < 0.012 NT-Pro-B Natriuret Pep 2380 H Impressions: Chest X-Ray 10/02/19 04:23 IMPRESSION: Small patchy opacity of the right upper and right lower lung field. Differential diagnosis includes atypical pneumonitis. CTA pending. Chest/Abdomen CTA 10/02/19 05:46 IMPRESSION: 1. Suspected pulmonary hypertension. No evidence for pulmonary embolus. Enlarged left atrium of the heart and pulmonary veins. 2. Moderate diffuse infiltrate in the right lung mainly right lower lobe but also right upper lobe involvement. Combination of groundglass opacities and consolidations. No pleural disease. Findings suspicious for pneumonia and could be compatible with viral etiology. Post radiation changes? 3. Suspected mild fatty liver. Narrowing at the origin of the celiac artery. Chronic partially calcified lesion adherent to the left adrenal gland. 4. Asymmetry of the breasts with more fibroglandular tissue on the right. Skin thickening. Suspected inflammatory or neoplastic right breast abnormality. Post radiation changes? Suggest clinical correlation and further evaluation if necessary. PICC Line Insertion 10/04/19 00:00 IMPRESSION: SUCCESSFUL PLACEMENT OF A 5 FR DUAL LUMEN 37 CM PICC IN THE LEFT BASILIC VEIN. Assessment and Plan - Diagnosis (1) Pneumonia due to COVID-19 virus Is this a current diagnosis for this admission?: Yes Plan: COVID-19 serology positive. Unknown exposure. On tamoxifen. History of breast cancer. WBC trending downn. SPO2 on RA. Afebrile. Day 6 IV antibiotics. Day 6 IV azithromycin. Day 6 IV ceftriaxone. Received 5 days of IV dexamethasone. Continue supplemental oxygen, duo nebs, zinc sulfate, empiric IV antibiotics, flutter valve, incentive spirometry, contact isolation. (2) Acute respiratory failure with hypoxia Is this a current diagnosis for this admission?: Yes Plan: Due to 1. Plan as per. (3) HTN (hypertension) Qualifiers: Hypertension type: essential hypertension Qualified Code(s): I10 - Essential (primary) hypertension Is this a current diagnosis for this admission?: No Plan: Euvolemic. Normotensive. Continue current meds. Outpatient PCP follow-up. (4) Pneumonia Qualifiers: Pneumonia type: due to unspecified organism Laterality: right Lung location: unspecified part of lung Qualified Code(s): J18.9 - Pneumonia, unspecified organism Is this a current diagnosis for this admission?: Yes Plan: Due to #1. Blood cultures negative. Plan as per #1. (5) History of breast cancer Is this a current diagnosis for this admission?: Yes Plan: On tamoxifen. Outpatient PCP follow-up. (6) Obesity (BMI 30.0-34.9) Is this a current diagnosis for this admission?: Yes Plan: BMI 32.9. Diet and lifestyle modification recommended. (7) Acute kidney injury superimposed on CKD Is this a current diagnosis for this admission?: Yes Plan: Prerenal. Likely due to volume depletion. Resolved. Monitor volume status, monitor electrolytes replace as needed. Avoid nephrotoxic meds. - Time Time Spent with patient: 25-34 minutes Medications reviewed and adjusted accordingly: Yes Anticipated Discharge Disposition: Home, Self Care Anticipated Discharge Timeframe: within 24 hours
[2019-10-08] MEDS: TAMOXIFEN CITRATE 10 MG TABLET PO SCH (21:36)
[2019-10-08] MEDS: TEMAZEPAM 15 MG CAPSULE PO SCH (21:36)
[2019-10-09] MEDS: GABAPENTIN 400 MG CAPSULE PO SCH ×3 (05:09→21:12)
[2019-10-09] MEDS: HEPARIN SOD (PORCINE) 5,000 UNIT/ML 1 ML VIAL SUBCUT SCH ×3 (05:09→21:12)
[2019-10-09 06:09] LABS: HEMOGLOBIN 12.2 g/dL (12.0-15.5); MEAN CORPUSCULAR HGB CONC 33.1 g/dL (32.0-36.0); MEAN CORPUSCULAR VOLUME 94 fl (80-97); PLATELET COUNT 238 10^3/uL (150-450); RED BLOOD COUNT 3.95 10^6/uL (3.72-5.28); WHITE BLOOD COUNT 13.3 10^3/uL (4.0-10.5)
[2019-10-09 06:21] LABS: BLOOD UREA NITROGEN 25 mg/dL (7-20); CALCIUM 9.1 mg/dL (8.4-10.2); CARBON DIOXIDE 28 mmol/L (22-30); CHLORIDE 103 mmol/L (98-107); GLUCOSE 79 mg/dL (75-110); POTASSIUM 4.9 mmol/L (3.6-5.0)
[2019-10-09 06:33] LABS: ANION GAP 4 (5-19)
[2019-10-09 06:37] LABS: ABSOLUTE LYMPHOCYTES# (MANUAL) 3.7 10^3/uL (0.5-4.7); ABSOLUTE MONOCYTES # (MANUAL) 1.1 10^3/uL (0.1-1.4); BASOPHILS % (MANUAL) 0 % (0-2); EOSINOPHILS % (MANUAL) 0 % (0-6); LYMPHOCYTES % (MANUAL) 28 % (13-45); MONOCYTES % (MANUAL) 8 % (3-13); SEGMENTED NEUTROPHILS % (MAN) 64 % (42-78); TOTAL CELLS COUNTED 100
[2019-10-09 06:38] LABS: TOXIC GRANULATION SLIGHT
[2019-10-09 06:39] LABS: OVALOCYTES SLIGHT; PLATELET COMMENT ADEQUATE; POIKILOCYTOSIS SLIGHT; SCHISTOCYTES SLIGHT
[2019-10-09] MEDS: CEFTRIAXONE RTU 2 GM/D5W 50 ML IV SCH (07:47)
[2019-10-09] MEDS: FUROSEMIDE 20 MG TABLET PO SCH (08:20)
[2019-10-09] MEDS: MAGNESIUM OXIDE 400 MG TABLET PO SCH ×2 (09:46→17:19)
[2019-10-09] MEDS: AZITHROMYCIN 500 MG in DEXTROSE 5%-WATER 250 ML IV SCH (09:46)
[2019-10-09] MEDS: LISINOPRIL 10 MG TABLET PO SCH (09:47)
[2019-10-09] MEDS: LORATADINE 10 MG TABLET PO SCH (09:47)
[2019-10-09] MEDS: PANTOPRAZOLE SODIUM 40 MG TABLET.DR PO SCH (09:47)
[2019-10-09] MEDS: METHADONE HCL 10 MG TABLET PO SCH (09:48)
[2019-10-09] MEDS: ATORVASTATIN CALCIUM 10 MG TABLET PO SCH (09:49)
[2019-10-09] MEDS ORDERED: NORMAL SALINE 10 ML SDV (AFTER EACH USE) IV PRN (15:00)
[2019-10-09 17:05] LABS: HEMATOCRIT 36.6 % (36.0-47.0); HEMOGLOBIN 12.1 g/dL (12.0-15.5); MEAN CORPUSCULAR HGB CONC 32.9 g/dL (32.0-36.0); MEAN CORPUSCULAR VOLUME 94 fl (80-97); PLATELET COUNT 245 10^3/uL (150-450); RED BLOOD COUNT 3.89 10^6/uL (3.72-5.28); RED CELL DISTRIBUTION WIDTH 13.2 % (11.5-14.0); WHITE BLOOD COUNT 12.4 10^3/uL (4.0-10.5)
[2019-10-09 17:23] LABS: ANION GAP 5 (5-19); BLOOD UREA NITROGEN 26 mg/dL (7-20); CALCIUM 8.8 mg/dL (8.4-10.2); CARBON DIOXIDE 28 mmol/L (22-30); CHLORIDE 101 mmol/L (98-107); GLUCOSE 92 mg/dL (75-110); POTASSIUM 4.5 mmol/L (3.6-5.0)
[2019-10-09 17:28] LABS: ABSOLUTE MONOCYTES # (MANUAL) 0.5 10^3/uL (0.1-1.4); BAND NEUTROPHILS % (MANUAL) 2 % (3-5); BASOPHILS % (MANUAL) 0 % (0-2); EOSINOPHILS % (MANUAL) 2 % (0-6); LYMPHOCYTES % (MANUAL) 48 % (13-45); METAMYELOCYTES % (MANUAL) 2 % (0-1); MONOCYTES % (MANUAL) 4 % (3-13); OVALOCYTES SLIGHT; PLATELET COMMENT ADEQUATE; POIKILOCYTOSIS SLIGHT; SEGMENTED NEUTROPHILS % (MAN) 42 % (42-78); TOTAL CELLS COUNTED 100
[2019-10-09] MEDS: TAMOXIFEN CITRATE 10 MG TABLET PO SCH (21:12)
[2019-10-09] MEDS: TEMAZEPAM 15 MG CAPSULE PO SCH (21:12)
[2019-10-09] MEDS ORDERED: NORMAL SALINE 10 ML SDV (SCHEDULED) IV SCH (22:00)
[2019-10-10] MEDS: HEPARIN SOD (PORCINE) 5,000 UNIT/ML 1 ML VIAL SUBCUT SCH (06:03)
[2019-10-10] MEDS: GABAPENTIN 400 MG CAPSULE PO SCH (06:10)
[2019-10-10] MEDS: FUROSEMIDE 20 MG TABLET PO SCH (08:36)
[2019-10-10 08:58] VITALS: BP 108/49
[2019-10-10] MEDS: LISINOPRIL 10 MG TABLET PO SCH (09:05)
[2019-10-10] MEDS: ATORVASTATIN CALCIUM 10 MG TABLET PO SCH (09:05)
[2019-10-10] MEDS: PANTOPRAZOLE SODIUM 40 MG TABLET.DR PO SCH (09:05)
[2019-10-10] MEDS: MAGNESIUM OXIDE 400 MG TABLET PO SCH (09:06)
[2019-10-10] MEDS: LORATADINE 10 MG TABLET PO SCH (09:06)
--- NOTE | 2019-10-13 17:49 | PDOC DISCHARGE SUMMARY ---
Impression - Admit/DC Date/PCP Admission Date/Primary Care Provider: 10/02/19 09:22 RUDDY LOO Discharge Date: 10/09/19 - Discharge Diagnosis (1) Pneumonia due to COVID-19 virus Is this a current diagnosis for this admission?: Yes (2) Acute respiratory failure with hypoxia Is this a current diagnosis for this admission?: Yes (3) HTN (hypertension) Is this a current diagnosis for this admission?: Yes (4) Pneumonia Is this a current diagnosis for this admission?: Yes (5) History of breast cancer Is this a current diagnosis for this admission?: Yes (6) Obesity (BMI 30.0-34.9) Is this a current diagnosis for this admission?: Yes (7) Acute kidney injury superimposed on CKD Is this a current diagnosis for this admission?: Yes - Additional Information Resuscitation Status: Full Code Discharge Diet: As Tolerated Discharge Activity: Activity As Tolerated, Balance Activity w/Rest Referrals: RUDDY LOO MD [Primary Care Provider] - 10/22/19 9:45 am Prescriptions: Lisinopril [Prinivil 10 mg Tablet] 10 mg PO DAILY 30 Days #30 tablet Home Medications: Gabapentin 800 mg PO Q8 05/31/15 Zolpidem Tartrate [Ambien 5 mg Tablet] 5 mg PO QHS 05/31/15 Atorvastatin Calcium [Lipitor 10 mg Tablet] 10 mg PO DAILY 10/02/19 Dexlansoprazole [Dexilant 60 mg Capsule] 60 mg PO DAILY 10/02/19 Loratadine [Claritin 10 mg Tablet] 10 mg PO DAILY 10/02/19 Methadone HCl [Dolophine 10 mg Tablet] 10 mg PO BID 10/02/19 Tamoxifen Citrate [Nolvadex 10 mg Tablet] 20 mg PO DAILY 10/02/19 Tizanidine HCl [Zanaflex 4 mg Tablet] 4 mg PO BID 10/02/19 Lisinopril [Prinivil 10 mg Tablet] 10 mg PO DAILY 30 Days #30 tablet 10/09/19 History of Present Illiness History of Present Illness: DIPAK JANE is a 68 year old female with history of hypertension, hysterectomy, breast cancer status post radiation and tamoxifen, history of pulmonary embolism, came to the emergency room with complaints of fever and shortness of breath of 2 days duration. Hospital Course Hospital Course: (1) Pneumonia due to COVID-19 virus COVID-19 serology positive. Unknown exposure. On tamoxifen. History of breast cancer. Mild leukocytosis however asymptomatic. SPO2 on RA. Afebrile. Received 6 days of IV antibiotics. Received 6 days of IV ceftriaxone. Received 6 days of IV azithromycin. Received 6 days of IV steroids. Received 6 days of weight dosed Lovenox. Was continued on supplemental oxygen, duo nebs, zinc sulfate, empiric IV antibiotics, flutter valve, incentive spirometry, contact isolation. (2) Acute respiratory failure with hypoxia Due to 1. Plan as per. (3) HTN (hypertension) Euvolemic. Normotensive. Continued current meds. Outpatient PCP follow-up. (4) Pneumonia Due to #1. Blood cultures negative. Plan as per #1. (5) History of breast cancer On tamoxifen. Outpatient PCP follow-up. (6) Obesity (BMI 30.0-34.9) BMI 32.9. Diet and lifestyle modification recommended. (7) Acute kidney injury superimposed on CKD Resolved. Prerenal. Likely due to volume depletion. Monitored volume status, monitor electrolytes replace as needed. Advised to follow-up with PCP and nephrology. And avoid nephrotoxic meds. Physical Exam Vital Signs: Temp Pulse Resp BP Pulse Ox 98.0 F 60 16 108/49 L 95 10/10/19 08:55 10/10/19 08:55 10/10/19 08:55 10/10/19 08:55 10/10/19 08:55 General appearance: PRESENT: no acute distress, well-developed, well-nourished Head exam: PRESENT: atraumatic, normocephalic Respiratory exam: PRESENT: clear to auscultation alida. ABSENT: rales, rhonchi, wheezes Cardiovascular exam: PRESENT: RRR. ABSENT: diastolic murmur, rubs, systolic murmur GI/Abdominal exam: PRESENT: normal bowel sounds, soft. ABSENT: distended, guarding, mass, organolmegaly, rebound, tenderness Neurological exam: PRESENT: alert, awake, oriented to person, oriented to place, oriented to time, oriented to situation, CN II-XII grossly intact. ABSENT: motor sensory deficit Skin exam: PRESENT: dry, intact, warm. ABSENT: cyanosis, rash Results Laboratory Results: WBC 12.4 10^3/uL (4.0-10.5) H 10/09/19 16:30 RBC 3.89 10^6/uL (3.72-5.28) 10/09/19 16:30 Hgb 12.1 g/dL (12.0-15.5) 10/09/19 16:30 Hct 36.6 % (36.0-47.0) 10/09/19 16:30 MCV 94 fl (80-97) 10/09/19 16:30 MCH 31.0 pg (27.0-33.4) 10/09/19 16:30 MCHC 32.9 g/dL (32.0-36.0) 10/09/19 16:30 RDW 13.2 % (11.5-14.0) 10/09/19 16:30 Plt Count 245 10^3/uL (150-450) 10/09/19 16:30 Lymph % (Auto) Not Reportable 10/09/19 16:30 Jack % (Auto) Not Reportable 10/09/19 16:30 Eos % (Auto) Not Reportable 10/09/19 16:30 Baso % (Auto) Not Reportable 10/09/19 16:30 Absolute Neuts (auto) Not Reportable 10/09/19 16:30 Absolute Lymphs (auto) Not Reportable 10/09/19 16:30 Absolute Monos (auto) Not Reportable 10/09/19 16:30 Absolute Eos (auto) Not Reportable 10/09/19 16:30 Absolute Basos (auto) Not Reportable 10/09/19 16:30 Total Counted 100 10/09/19 16:30 Seg Neutrophils % Not Reportable 10/09/19 16:30 Seg Neuts % (Manual) 42 % (42-78) 10/09/19 16:30 Band Neutrophils % 2 % (3-5) L 10/09/19 16:30 Lymphocytes % (Manual) 48 % (13-45) H 10/09/19 16:30 Atypical Lymphs % 7 % (0) 10/08/19 06:35 Monocytes % (Manual) 4 % (3-13) 10/09/19 16:30 Eosinophils % (Manual) 2 % (0-6) 10/09/19 16:30 Basophils % (Manual) 0 % (0-2) 10/09/19 16:30 Metamyelocytes % 2 % (0-1) H 10/09/19 16:30 Abs Neuts (Manual) 5.7 10^3/uL (1.7-8.2) 10/09/19 16:30 Abs Lymphs (Manual) 6.0 10^3/uL (0.5-4.7) H 10/09/19 16:30 Abs Monocytes (Manual) 0.5 10^3/uL (0.1-1.4) 10/09/19 16:30 Absolute Eos (Manual) 0.2 10^3/uL (0.0-0.6) 10/09/19 16:30 Abs Basophils (Manual) 0.0 10^3/uL (0.0-0.2) 10/09/19 16:30 Toxic Granulation SLIGHT 10/09/19 05:30 WBC Morphology Comment NN 10/08/19 06:35 Platelet Comment ADEQUATE 10/09/19 16:30 Polychromasia SLIGHT 10/08/19 06:35 Poikilocytosis SLIGHT 10/09/19 16:30 Ovalocytes SLIGHT 10/09/19 16:30 Schistocytes SLIGHT 10/09/19 05:30 PT 12.9 SEC (11.4-15.4) 10/02/19 04:43 INR 0.97 10/02/19 04:43 APTT 27.5 SEC (23.5-35.8) 10/02/19 04:43 D-Dimer 3.64 ug/mL (0.00-0.50) H 10/07/19 09:00 VBG pH 7.36 (7.30-7.42) 10/02/19 04:43 VBG pCO2 59.0 mmHg (35-63) 10/02/19 04:43 VBG HCO3 32.8 mmol/L (20-32) H 10/02/19 04:43 VBG Base Excess 5.8 mmol/L 10/02/19 04:43 Sodium 134.1 mmol/L (137-145) L 10/09/19 16:30 Potassium 4.5 mmol/L (3.6-5.0) 10/09/19 16:30 Chloride 101 mmol/L (98-107) 10/09/19 16:30 Carbon Dioxide 28 mmol/L (22-30) 10/09/19 16:30 Anion Gap 5 (5-19) 10/09/19 16:30 BUN 26 mg/dL (7-20) H 10/09/19 16:30 Creatinine 1.25 mg/dL (0.52-1.25) 10/09/19 16:30 Est GFR ( Amer) 52 (>60) L 10/09/19 16:30 Est GFR (MDRD) Non-Af 43 (>60) L 10/09/19 16:30 Glucose 92 mg/dL (75-110) 10/09/19 16:30 Hemoglobin A1c % 5.9 % (4.7-6.0) 10/03/19 05:07 Calcium 8.8 mg/dL (8.4-10.2) 10/09/19 16:30 Magnesium 1.6 mg/dL (1.6-2.3) 10/09/19 05:30 Total Bilirubin 0.4 mg/dL (0.2-1.3) 10/05/19 04:45 Direct Bilirubin 0.0 mg/dL (0.0-0.4) 10/05/19 04:45 Neonat Total Bilirubin Not Reportable 10/05/19 04:45 Neonat Direct Bilirubin Not Reportable 10/05/19 04:45 Neonat Indirect Bili Not Reportable 10/05/19 04:45 AST 30 U/L (14-36) 10/05/19 04:45 ALT 17 U/L (<35) 10/05/19 04:45 Alkaline Phosphatase 42 U/L (38-126) 10/05/19 04:45 Troponin I < 0.012 ng/mL 10/03/19 05:07 NT-Pro-B Natriuret Pep 2380 pg/mL (<125) H 10/02/19 04:43 Total Protein 5.8 g/dL (6.3-8.2) L 10/05/19 04:45 Albumin 3.2 g/dL (3.5-5.0) L 10/05/19 04:45 Urine Color STRAW 10/02/19 12:30 Urine Appearance CLEAR 10/02/19 12:30 Urine pH 6.0 (5.0-9.0) 10/02/19 12:30 Ur Specific [place] 1.016 10/02/19 12:30 Urine Protein NEGATIVE mg/dL (NEGATIVE) 10/02/19 12:30 Urine Glucose (UA) 50 mg/dL (NEGATIVE) H 10/02/19 12:30 Urine Ketones NEGATIVE mg/dL (NEGATIVE) 10/02/19 12:30 Urine Blood NEGATIVE (NEGATIVE) 10/02/19 12:30 Urine Nitrite NEGATIVE (NEGATIVE) 10/02/19 12:30 Urine Bilirubin NEGATIVE (NEGATIVE) 10/02/19 12:30 Urine Urobilinogen NEGATIVE mg/dL (<2.0) 10/02/19 12:30 Ur Leukocyte Esterase NEGATIVE (NEGATIVE) 10/02/19 12:30 Urine WBC (Auto) 0 /HPF 10/02/19 12:30 Urine Ascorbic Acid NEGATIVE (NEGATIVE) 10/02/19 12:30 COVID-19 Source NASOPHARYNGEAL 10/02/19 09:10 COVID-19 (JIM) DETECTED H 10/02/19 09:10 10/02/19 10/03/19 04:43 05:07 Troponin I < 0.012 < 0.012 NT-Pro-B Natriuret Pep 2380 H Impressions: Chest X-Ray 10/02/19 04:23 IMPRESSION: Small patchy opacity of the right upper and right lower lung field. Differential diagnosis includes atypical pneumonitis. CTA pending. Chest/Abdomen CTA 10/02/19 05:46 IMPRESSION: 1. Suspected pulmonary hypertension. No evidence for pulmonary embolus. Enlarged left atrium of the heart and pulmonary veins. 2. Moderate diffuse infiltrate in the right lung mainly right lower lobe but also right upper lobe involvement. Combination of groundglass opacities and consolidations. No pleural disease. Findings suspicious for pneumonia and could be compatible with viral etiology. Post radiation changes? 3. Suspected mild fatty liver. Narrowing at the origin of the celiac artery. Chronic partially calcified lesion adherent to the left adrenal gland. 4. Asymmetry of the breasts with more fibroglandular tissue on the right. Skin thickening. Suspected inflammatory or neoplastic right breast abnormality. Post radiation changes? Suggest clinical correlation and further evaluation if necessary. PICC Line Insertion 10/04/19 00:00 IMPRESSION: SUCCESSFUL PLACEMENT OF A 5 FR DUAL LUMEN 37 CM PICC IN THE LEFT BASILIC VEIN. Stroke Is this a Stroke Patient?: No Acute Heart Failure - Is this a Heart Failure Patient?: No
== END 2019-10-10 09:36 | disposition home or self-care (01) | DRG 999 ==
LOC: ER 03:43 → EH 09:22 → 3N 15:49
PROVIDERS: ADMIT Internal Medicine; ATTEND Internal Medicine
PROC: 02HV33Z Insertion of Infusion Device into Superior Vena Cava, Percutaneous Approach (ICD-10-PCS; principal; 2019-10-04)
DX: U07.1 COVID-19 (principal); J12.89 Other viral pneumonia; J96.01 Acute respiratory failure with hypoxia; N17.9 Acute kidney failure, unspecified; E66.9 Obesity, unspecified; I12.9 Hypertensive chronic kidney disease with stage 1 through stage 4 chronic kidney disease, or unspecified chronic kidney disease; N18.9 Chronic kidney disease, unspecified; K21.9 Gastro-esophageal reflux disease without esophagitis; M19.90 Unspecified osteoarthritis, unspecified site; F32.9 Major depressive disorder, single episode, unspecified; Z96.652 Presence of left artificial knee joint; E83.42 Hypomagnesemia; M54.9 Dorsalgia, unspecified; G89.29 Other chronic pain; Z79.899 Other long term (current) drug therapy; Z85.3 Personal history of malignant neoplasm of breast; Z68.34 Body mass index [BMI] 34.0-34.9, adult; Z86.711 Personal history of pulmonary embolism; Z87.01 Personal history of pneumonia (recurrent); Z82.49 Family history of ischemic heart disease and other diseases of the circulatory system
CPT/HCPCS: 36415; 36573; 71045; 71275; 80048; 80053; 81001; 82803; 83036; 83735; 83880; 84484; 85025; 85379; 85610; 85730; 87040; 87635; 93005; 93010; 96361; 96365; 99285; C1769; C9803; J0456; J0696; J1100; J1642; J1644; J2405; J3475; J3490; J7030; J7060